=== PATIENT | female | born 1955 | race Caucasian/White ===

== ENCOUNTER 2020-05-29 17:48 | Outpatient (REF) | payer BC, SELFPAY | END 2020-05-29 17:49 | disposition home or self-care (01) | LOC: HO.LAB 17:48 | PROVIDERS: PCP Internal Medicine; Visit Provider Internal Medicine | DX: Z20.828 Contact with and (suspected) exposure to other viral communicable diseases (principal) | CPT/HCPCS: C9803; U0003 ==

== ENCOUNTER 2020-09-10 16:42 | Outpatient (REF) | payer BC, SELFPAY ==
[2020-09-10 20:12] LABS: Free T4 (Free Thyroxine) 0.91 ng/dL (0.71-1.85); Thyroid Stimulating Hormone 2.25 uIU/mL (0.32-4.0)
== END 2020-09-10 16:43 | disposition home or self-care (01) ==
LOC: HO.LAB 16:42
PROVIDERS: PCP Internal Medicine; Visit Provider Internal Medicine
DX: E03.9 Hypothyroidism, unspecified (principal)
CPT/HCPCS: 36415; 84439; 84443

== ENCOUNTER 2020-12-13 16:15 | Outpatient (REF) | payer OTHER, BC, SELFPAY ==
[2020-12-13 18:26] LABS: Albumin Level 4.2 g/dL (3.5-5.0)
[2020-12-13 18:55] LABS: Ferritin 143 ng/mL (10-250)
== END 2020-12-13 16:16 | disposition home or self-care (01) ==
LOC: HO.LAB 16:15
PROVIDERS: PCP Internal Medicine; Visit Provider Dermatology
DX: L65.9 Nonscarring hair loss, unspecified (principal); L71.8 Other rosacea
CPT/HCPCS: 36415; 82040; 82728

== ENCOUNTER 2021-06-17 09:59 | Outpatient (REF) | payer OTHER, SELFPAY ==
[2021-06-17 11:23] LABS: MANUAL DIFF FLAG NO
[2021-06-17 11:32] LABS: Basophils Absolute Auto 0.1 X10*3/uL (0.0-0.2); Basophils Percent Auto 0.9 % (0-2); Eosinophils Absolute Auto 0.2 X10*3/uL (0.0-0.4); Hematocrit 46.3 % (37.0-47.0); Hemoglobin 14.6 g/dl (12.0-16.0); Imm Gran Abs Auto 0.02 X10*3/uL (0.00-0.03); Imm Gran Pct Auto 0.3 % (0.0-0.4); Lymphocytes Absolute Auto 1.7 X10*3/uL (1.2-4.9); Lymphocytes Percent Auto 26.4 % (20-40); Mean Corpuscular HGB Conc 31.5 g/dl (31.0-35.0); Mean Corpuscular Hemoglobin 29.3 pg (27.0-33.0); Mean Corpuscular Volume 92.8 fL (80.0-98.0); Mean Platelet Volume 10.1 fL (9.4-12.3); Monocytes Absolute Auto 0.6 X10*3/uL (0.1-1.2); Monocytes Percent Auto 9.7 % (2-11); Neutrophils Absolute Auto 3.8 x10*3/uL (2.0-8.3); Neutrophils Percent Auto 59.7 % (45-73); Platelet Count 257 X10*3/uL (160-400); Red Blood Count 4.99 X10*6/uL (4.20-5.50); Red Cell Distribution Width 12.8 % (11.0-16.0); White Blood Count 6.4 X10*3/uL (4.8-10.8)
[2021-06-17 11:35] LABS: Estimated Average Glucose 148 mg/dL; Hemoglobin A1c % 6.8 %
[2021-06-17 11:48] LABS: Alanine Aminotransferase 44 U/L (0-31); Anion Gap 11 (12-20); Aspartate Amino Transferase 35 U/L (5-31); Blood Urea Nitrogen 21 mg/dL (9-16); Calcium 10.2 mg/dL (8.4-10.2); Carbon Dioxide 28 mmol/L (22-29); Chloride 109 mmol/L (96-108); Cholesterol 200 mg/dL; Estimated Glomerular Filt Rate 50; Glucose Fasting 122 mg/dL (60-99); HDL Cholesterol 42 mg/dL; LDL Cholesterol Calculated 125 mg/dl; Potassium 4.5 mmol/L (3.3-5.1); Sodium 143 mmol/L (135-145); Triglycerides 165 mg/dL
[2021-06-17 12:10] LABS: Free T4 (Free Thyroxine) 0.94 ng/dL (0.71-1.85); Thyroid Stimulating Hormone 2.69 uIU/mL (0.32-4.0); Vitamin D 25-OH Total 74.2 ng/mL (>30)
== END 2021-06-17 10:00 | disposition home or self-care (01) ==
LOC: HO.HMGCLDS 09:59
PROVIDERS: PCP Internal Medicine; Visit Provider Internal Medicine
DX: Z00.01 Encounter for general adult medical examination with abnormal findings (principal); E03.9 Hypothyroidism, unspecified; I10 Essential (primary) hypertension; M85.80 Other specified disorders of bone density and structure, unspecified site; R73.01 Impaired fasting glucose; Z78.0 Asymptomatic menopausal state
CPT/HCPCS: 36415; 80048; 80061; 82306; 83036; 84439; 84443; 84450; 84460; 85025

== ENCOUNTER 2021-06-27 10:30 | Outpatient (REF) | payer OTHER, SELFPAY ==
[2021-06-28 07:56] LABS: FIT1 NEGATIVE (NEGATIVE); FIT2 NEGATIVE (NEGATIVE)
[2021-06-28 07:57] LABS: FIT Int Ctl YES
== END 2021-06-27 10:31 | disposition home or self-care (01) ==
LOC: HO.HMGCLNP 10:30
PROVIDERS: Visit Provider Internal Medicine
DX: Z12.11 Encounter for screening for malignant neoplasm of colon (principal); Z12.12 Encounter for screening for malignant neoplasm of rectum
CPT/HCPCS: 82274

== ENCOUNTER 2021-09-24 13:25 | Outpatient (REF) | payer MEDICARE, MEDICAID, SELFPAY ==
[2021-09-24 14:28] LABS: Alanine Aminotransferase 30 U/L (0-31); Anion Gap 14 (12-20); Aspartate Amino Transferase 27 U/L (5-31); Blood Urea Nitrogen 38 mg/dL (9-16); Calcium 10.5 mg/dL (8.4-10.2); Carbon Dioxide 25 mmol/L (22-29); Chloride 107 mmol/L (96-108); Cholesterol 213 mg/dL; Estimated Glomerular Filt Rate 48; Glucose Fasting 84 mg/dL (60-99); HDL Cholesterol 42 mg/dL; LDL Cholesterol Calculated 151 mg/dl; Potassium 4.6 mmol/L (3.3-5.1); Sodium 141 mmol/L (135-145); Triglycerides 101 mg/dL
[2021-09-24 14:35] LABS: Estimated Average Glucose 126 mg/dL
[2021-09-24 14:51] LABS: Free T4 (Free Thyroxine) 1.09 ng/dL (0.71-1.85); Thyroid Stimulating Hormone 0.85 uIU/mL (0.32-4.0); Vitamin D 25-OH Total 87.2 ng/mL (>30)
== END 2021-09-24 13:26 | disposition home or self-care (01) ==
LOC: HO.HMGCLDS 13:25
PROVIDERS: PCP Internal Medicine; Visit Provider Internal Medicine
DX: Z01.83 Encounter for blood typing (principal); E03.9 Hypothyroidism, unspecified; I10 Essential (primary) hypertension; M85.80 Other specified disorders of bone density and structure, unspecified site; R73.01 Impaired fasting glucose; Z78.0 Asymptomatic menopausal state
CPT/HCPCS: 36415; 80048; 80061; 82306; 83036; 84439; 84443; 84450; 84460; 86900; 86901

== ENCOUNTER 2022-06-27 08:49 | Outpatient (REF) | payer OTHER, SELFPAY ==
[2022-06-27 11:59] LABS: Estimated Average Glucose 177 mg/dL; Hemoglobin A1c % 7.8 %
[2022-06-27 12:09] LABS: Alanine Aminotransferase 76 U/L (0-31); Anion Gap 15 (12-20); Aspartate Amino Transferase 55 U/L (5-31); Blood Urea Nitrogen 25 mg/dL (9-16); Calcium 10.1 mg/dL (8.4-10.2); Carbon Dioxide 25 mmol/L (22-29); Chloride 106 mmol/L (96-108); Cholesterol 216 mg/dL; Estimated Glomerular Filt Rate 50; Glucose Fasting 152 mg/dL (60-99); HDL Cholesterol 47 mg/dL; LDL Cholesterol Calculated 122 mg/dl; Potassium 4.8 mmol/L (3.3-5.1); Sodium 141 mmol/L (135-145); Triglycerides 239 mg/dL
[2022-06-27 12:28] LABS: Free T4 (Free Thyroxine) 0.94 ng/dL (0.71-1.85); Thyroid Stimulating Hormone 2.86 uIU/mL (0.32-4.0); Vitamin D 25-OH Total 51.4 ng/mL (>30)
[2022-06-30 13:13] LABS: Calcium, Ionized 5.2 mg/dL (4.8-5.6)
[2022-06-30 13:24] LABS: Calcium (PTHI) 10.1 mg/dL (8.6-10.4); PTHI 218 pg/mL (16-77)
== END 2022-06-27 08:50 | disposition home or self-care (01) ==
LOC: HO.HMGCLDS 08:49
PROVIDERS: PCP Internal Medicine; Visit Provider Internal Medicine
DX: Z00.01 Encounter for general adult medical examination with abnormal findings (principal); E03.9 Hypothyroidism, unspecified; E83.52 Hypercalcemia; F41.9 Anxiety disorder, unspecified; I10 Essential (primary) hypertension; M85.80 Other specified disorders of bone density and structure, unspecified site; R73.01 Impaired fasting glucose; Z78.0 Asymptomatic menopausal state
CPT/HCPCS: 36415; 80048; 80061; 82306; 82330; 83036; 83970; 84439; 84443; 84450; 84460

== ENCOUNTER → 2022-07-08 11:12 | Outpatient (BNVA) | payer OTHER, SELFPAY | PROVIDERS: PCP Internal Medicine; Visit Provider Internal Medicine Endocrinology, Diabetes & Metabolism | DX: E83.52 Hypercalcemia (principal) ==

== ENCOUNTER 2022-07-14 08:27 | Outpatient (REF) | payer OTHER, SELFPAY ==
[2022-07-14 10:31] LABS: Estimated Glomerular Filt Rate 43
[2022-07-14 10:38] LABS: Vitamin D 25-OH Total 72.3 ng/mL (>30)
[2022-07-14 11:10] LABS: Creatinine, mg/dL 68.37
[2022-07-14 12:23] LABS: Creatinine, 24Hr Urine 0.7 G/Day (1.0-2.0); Total Volume 24 Hour Urine 1075 mL
[2022-07-15 17:59] LABS: Calcium (PTHI) 10.4 mg/dL (8.6-10.4); PTHI 189 pg/mL (16-77)
[2022-07-16 17:18] LABS: Calcium, 24 Hr Urine 97 mg/24 h; Calcium/Creatinine Ratio 120 mg/g creat (30-275); Creatinine 24Hr Urine 0.81 g/24 h (0.50-2.15)
== END 2022-07-14 08:28 | disposition home or self-care (01) ==
LOC: HO.LAB 08:27
PROVIDERS: PCP Internal Medicine; Visit Provider Internal Medicine Endocrinology, Diabetes & Metabolism
DX: E83.52 Hypercalcemia (principal)
CPT/HCPCS: 36415; 82306; 82340; 82565; 82570; 83970

== ENCOUNTER 2022-08-07 09:36 | Outpatient (REF) | payer OTHER, SELFPAY ==
--- NOTE | ~2022-08-07 | US_ITS ---
EXAMINATION: US RETROPERITONEAL LIMITED (RENAL ONLY) CLINICAL INFORMATION: Hypercalcemia. COMPARISON: None. TECHNIQUE: Real-time imaging of the kidneys. FINDINGS: RIGHT KIDNEY: 8.9 x 4.1 x 4.9 cm (SAG x AP x TRV). The kidney is normal in size, contour, and echogenicity. Renal cortical thickness is normal. No focal parenchymal lesions or hydronephrosis. There is some nonspecific perinephric fat stranding around the right kidney. LEFT KIDNEY: 10.3 x 5.6 x 4.2 cm (SAG x AP x TRV). The kidney is normal in size, contour, and echogenicity. Renal cortical thickness is normal. No calculi or focal parenchymal lesions. No hydronephrosis. US/US renal BI IMPRESSION: No significant abnormality is seen. No renal nodule calculi or nephrocalcinosis visualized. There is some nonspecific perinephric fat stranding around the right kidney.
== END 2022-08-07 09:37 | disposition home or self-care (01) ==
LOC: HO.US 09:36
PROVIDERS: PCP Internal Medicine; Visit Provider Internal Medicine Endocrinology, Diabetes & Metabolism
DX: E83.52 Hypercalcemia (principal)
CPT/HCPCS: 76775

== ENCOUNTER 2022-10-13 08:57 | Outpatient (REF) | payer OTHER, SELFPAY ==
[2022-10-13 12:05] LABS: Alanine Aminotransferase 28 U/L (0-31); Anion Gap 14 (12-20); Aspartate Amino Transferase 27 U/L (5-31); Blood Urea Nitrogen 27 mg/dL (9-16); Calcium 10.4 mg/dL (8.4-10.2); Carbon Dioxide 25 mmol/L (22-29); Chloride 110 mmol/L (96-108); Cholesterol 152 mg/dL; Estimated Glomerular Filt Rate 47; Glucose Fasting 97 mg/dL (60-99); HDL Cholesterol 45 mg/dL; LDL Cholesterol Calculated 94 mg/dl; Potassium 4.4 mmol/L (3.3-5.1); Sodium 145 mmol/L (135-145); Triglycerides 67 mg/dL
[2022-10-13 12:47] LABS: Estimated Average Glucose 117 mg/dL; Hemoglobin A1c % 5.7 %
[2022-10-13 16:57] LABS: Creatinine Urine 42.02 mg/dL; Microalbum/Creatinine Ratio Ur 14.2 ug/mg cr
== END 2022-10-13 08:58 | disposition home or self-care (01) ==
LOC: HO.HMGCLDS 08:57
PROVIDERS: PCP Internal Medicine; Visit Provider Internal Medicine
DX: E11.65 Type 2 diabetes mellitus with hyperglycemia (principal)
CPT/HCPCS: 36415; 80048; 80061; 82043; 83036; 84450; 84460

== ENCOUNTER → 2022-11-05 09:29 | Outpatient (BNVA) | payer OTHER, SELFPAY | PROVIDERS: PCP Internal Medicine; Visit Provider Internal Medicine Endocrinology, Diabetes & Metabolism | DX: E03.9 Hypothyroidism, unspecified (principal); M85.80 Other specified disorders of bone density and structure, unspecified site; R73.01 Impaired fasting glucose; E83.52 Hypercalcemia; Z78.0 Asymptomatic menopausal state | CPT/HCPCS: 99212 ==

== ENCOUNTER 2023-01-08 08:11 | Outpatient (REF) | payer OTHER, SELFPAY ==
[2023-01-08 12:19] LABS: Estimated Average Glucose 108 mg/dL; Hemoglobin A1c % 5.4 %
[2023-01-08 12:22] LABS: Anion Gap 14 (12-20); Blood Urea Nitrogen 32 mg/dL (9-16); Calcium 10.9 mg/dL (8.4-10.2); Carbon Dioxide 23 mmol/L (22-29); Chloride 108 mmol/L (96-108); Estimated Glomerular Filt Rate 47; Glucose Fasting 93 mg/dL (60-99); Potassium 4.7 mmol/L (3.3-5.1); Sodium 140 mmol/L (135-145)
[2023-01-08 12:59] LABS: Free T4 (Free Thyroxine) 1.08 ng/dL (0.71-1.85); Thyroid Stimulating Hormone 0.19 uIU/mL (0.32-4.0)
[2023-01-12 13:22] LABS: Calcium (PTHI) 10.8 mg/dL (8.6-10.4); PTHI 145 pg/mL (16-77)
== END 2023-01-08 08:12 | disposition home or self-care (01) ==
LOC: HO.HMGCLDS 08:11
PROVIDERS: Internal Medicine Endocrinology, Diabetes & Metabolism; PCP Internal Medicine; Visit Provider Internal Medicine
DX: R73.01 Impaired fasting glucose (principal); M85.80 Other specified disorders of bone density and structure, unspecified site; E03.9 Hypothyroidism, unspecified; E83.52 Hypercalcemia; Z78.0 Asymptomatic menopausal state
CPT/HCPCS: 36415; 80048; 82306; 83036; 83970; 84439; 84443

== ENCOUNTER 2023-01-15 13:30 | Outpatient (AMB) | payer OTHER, SELFPAY ==
--- NOTE | 2023-01-15 13:37 | MHC.PC.OV ---
Vital Signs 01/15/23 13:40 Height 5 ft 3 in Weight 135 lb BMI 23.9 BP 130/64 Blood Pressure Location Lt brachial Position Sitting Pulse 66 Pulse Source Pulse Oximeter Pulse Oximetry (%) 95 Oxygen Delivery Method Room Air Intake Visit Reasons: 6 month follow up Intake Note: Pt is here today for her 6 mo. f/u Allergies cat Allergy (Unknown, Uncoded 01/16/23 00:45) swelling of lips crab meat Allergy (Unknown, Uncoded 01/16/23 00:45) sweling of lips Medication List - Last Reconciled 01/16/23 by Tawny Dunn MD cholecalciferol (vitamin D3) 125 mcg PO DAILY cyclosporine 0.05% (Restasis MultiDose) 1 drp ophthalmic (eye) Q12H doxycycline hyclate 50 mg PO DAILY epinephrine (EpiPen 2-Shiva) 0.3 mg (0.3 mL) IM Q15M PRN levothyroxine 75 mcg PO QAM Tobacco use date assessed: 01/15/23 Fall risk assessment: No Falls in past year Last assessed Fall Risk: 01/15/23 Dental Screening Dental Screen Date: 01/15/23 Did you have a dental visit in the last 12 months?: Yes Did you have a dental problem in the last 6 months where you did not have access to dental care?: No Was dental information given to patient?: Patient has dentist HPI 6 month follow up HPI Details 67-year-old lady with history of hypothyroidism diabetes mellitus, beginning osteopenia, and history of elevated serum calcium and intact parathyroid hormone, here today for follow-up. Has been feeling well, denies any joint pains, no weakness, no dizziness or chest pain or shortness of breath reported. She had recent fasting labs done which showed normal lipids,, electrolytes, but GFR is still low, has normal fasting glucose, and elevated serum calcium and intact parathyroid hormone. She was seen by Dr. Landeros several weeks ago and was told to observe her serum calcium levels at present time. Her TSH was mildly suppressed but her free T4 was within normal limits. Patient has been feeling well on current dose of levothyroxine. [facility] Medical History Acquired hypothyroidism Breast cancer screening by mammogram Closed fracture of neck of left femur Diabetes mellitus with hyperglycemia, without long-term current use of insulin Elevated blood pressure reading Elevated parathyroid hormone related peptide level Elevated serum creatinine History of herpes zoster History of posterior vitreous detachment Hypercalcemia Hypertriglyceridemia Keratitis sicca, bilateral Menopause Osteopenia Partial tear of right rotator cuff White coat syndrome with hypertension Surgical History Hx of repair of right rotator cuff Social History Household Members: None Housing: Apartment Alcohol intake: never Patient Tobacco Use Status: Never used Tobacco e-Cigarette/Vaping Use: Never Used Second Hand Smoke Exposure: No Current occupational status: employed Current occupation: [employer] Current occupational exposures/hazards: No Cognitive needs: No Hearing needs: Yes Vision needs: No Questionnaire Thrive Questionnaire Date Thrive assessed: 06/25/22 JENNIFER-7 AMB Questionnaire JENNIFER-7 Date JENNIFER - 7 assessed: 06/25/22 Source: Developed by Drs. Kehinde Arthur, Nanette Ernst, Remy Andrews and colleagues, with an educational kun from [employer] Review of Systems Const Denies body aches, Denies fatigue, Denies fever(s), Denies headache(s) and Denies weakness Eyes Denies change in vision ENT Denies dizziness, Denies headache(s), Reports hearing loss (Has bilateral hearing aids), Denies nasal congestion, Denies nasal discharge and Denies sore throat Card Denies chest pain, Denies lightheadedness, Denies palpitations and Denies dyspnea Resp Denies chest congestion, Denies cough, Denies dyspnea and Denies wheezing GI Denies abdominal pain, Denies change in bowel habits and Denies heartburn Reports no additional complaints Musc Reports no additional complaints Skin/Breast Denies lesions and Denies rash Neuro Denies dizziness, Denies headache(s), Denies Sensory deficit (Neuro) and Denies weakness Psych Reports no additional complaints Endo Denies fatigue, Denies polydipsia, Denies polyuria and Denies palpitations Santosh/Lymph Reports no additional complaints Aller/Immun Denies wheezing Physical exam (Primary Care) Vital Signs: Last Vital Signs Pulse 66 01/15/23 13:40 BP 130/64 01/15/23 13:40 Pulse Ox 95 01/15/23 13:40 Oxygen Delivery Method Room Air 01/15/23 13:40 BMI result Body Mass Index 23.9 Tobacco/Smoking Status: Tobacco use Status Tobacco use date assessed 01/15/23 01/15/23 13:42 Patient Tobacco Use Status Never used Tobacco 01/15/23 13:39 e-Cigarette/Vaping Use Never Used 01/15/23 13:39 Thrive Assessment: Date of Thrive Assessment Date Thrive assessed 06/25/22 01/15/23 13:39 Const Other: Alert oriented x3, no acute distress noted, ambulatory with normal gait Orientation/consciousness: patient oriented x3 HENMT Ears: external ears normal, TM's normal bilaterally, EAC's normal, hearing grossly impaired (Wears bilateral hearing aids) and other Mouth: Normal oral and palatal mucosa present and moist mucous membranes Eyes General: appearance normal, both eyes and all related structures Neck Other: Nonpalpable thyroid gland, nontender to palpation Neck: Yes full ROM, Yes no lymphadenopathy and Yes supple Resp Auscultation: clear to auscultation bilaterally Cardio Other: S1-S2 present regular rate and rhythm GI Other: normal bowel sounds, soft, nontender, no mass palpated Skin General skin exam: no rashes or lesions noted Neuro General: patient oriented x3, gait normal, tone normal, Normal light touch and pain sensation, no focal motor deficits and CN's II-XI intact bilaterally Sensory Exam: No Sensory deficit (Neuro) Extrem General: Yes full ROM, Yes no joint enlargement, Yes no pedal edema and Yes normal gait Psych Appearance: grossly normal and well kempt Mental Status: mental status grossly normal Speech and movement: Normal speech and movement present Affect: normal affect Results Reviewed Results Reviewed: SPEC : [id number] VICKI: 01/08/23 STATUS: COMP REQ : [id number] RECD: 01/08/[address]: Tawny Dunn MD COMP: 01/08/239 ENTERED: 01/08/[address]: ORDERED: Met Prof Fast, Vitamin D 25-OH, Free T4, TSH Test Result Flag Reference Site Sodium 140 135-145 mmol/L Potassium 4.7 3.3-5.1 mmol/L CL 108 96-108 mmol/L CO2 23 22-29 mmol/L Gap 14 12-20 BUN 32 H 9-16 mg/dL Creat 1.15 0.5-1.4 mg/dL EGFR 47 NOTE: For -[place] individuals, multiply the result by 1.210. Chronic Kidney Disease: Estimated GFR < 60 mL/min/1.73m2 Severe Kidney Disease: Estimated GFR < 15 mL/min/1.73m2 FBS 93 60-99 mg/dL CA 10.9 H 8.4-10.2 mg/dL Vit D 25-OH Tot 64.0 >30 ng/mL Health Based Reference Values* < 20 ng/mL Deficient 20-30 ng/mL Insufficient > 30 ng/mL Sufficient *Serafin SINGH. N Engl J Med. 2007;357:266-280 Care must be taken in interpreting Vitamin D results from different laboratories and methodologies. Published data demonstrated that results from patients undergoing hemodialysis may show a negative bias when tested with various automated 25-OH vitamin D assays when compared to LC-MS/MS. When testing samples from patients whose predominant form of Vitamin D is Vitamin D2, such as patients receiving Vitamin D2 supplementation, results that are subtherapeutic should be confirmed with another method such as LC-MS/MS. Free T4 1.08 0.71-1.85 ng/dL TSH 3rd Gen. 0.19 L 0.32-4.0 uIU/mL TSH 3rd Generation ([facility]) Assessment and Plan Assessment & Plan (1) Elevated serum creatinine: Code(s): R79.89 - Other specified abnormal findings of blood chemistry Plan: Nephrology consult obtained (2) Hypercalcemia: Code(s): E83.52 - Hypercalcemia Plan: Nephrology consult obtained (3) Elevated parathyroid hormone related peptide level: Code(s): R79.89 - Other specified abnormal findings of blood chemistry Plan: Patient currently asymptomatic, will refer to Nephrology (4) Acquired hypothyroidism: Code(s): E03.9 - Hypothyroidism, unspecified Plan: Thyroid levels are within normal limits, continue with current dose of levothyroxine 75 mcg daily in a.m. (5) Osteopenia: Code(s): M85.80 - Other specified disorders of bone density and structure, unspecified site Plan: Continue with regular weight-bearing exercises, in addition to taking adequate calcium in diet and taking vitamin-D 3 supplements. Orders: Orders US thyroid 01/15/23 E03.9 - Hypothyroidism, unspecified, E83.52 - Hypercalcemia, R79.89 - Other specified abnormal findings of blood chemistry Basic Metabolic Panel Fasting 05/15/23 E03.9 - Hypothyroidism, unspecified, E83.52 - Hypercalcemia, F41.9 - Anxiety disorder, unspecified, M85.80 - Other specified disorders of bone density and structure, unspecified site, R73.01 - Impaired fasting glucose, R79.89 - Other specified abnormal findings of blood chemistry Glucose Fasting 05/15/23 E03.9 - Hypothyroidism, unspecified, E83.52 - Hypercalcemia, F41.9 - Anxiety disorder, unspecified, M85.80 - Other specified disorders of bone density and structure, unspecified site, R73.01 - Impaired fasting glucose, R79.89 - Other specified abnormal findings of blood chemistry Lipid Panel 05/15/23 E03.9 - Hypothyroidism, unspecified, E83.52 - Hypercalcemia, F41.9 - Anxiety disorder, unspecified, M85.80 - Other specified disorders of bone density and structure, unspecified site, R73.01 - Impaired fasting glucose, R79.89 - Other specified abnormal findings of blood chemistry Free T4 (Free Thyroxine) 05/15/23 E03.9 - Hypothyroidism, unspecified, E83.52 - Hypercalcemia, F41.9 - Anxiety disorder, unspecified, M85.80 - Other specified disorders of bone density and structure, unspecified site, R73.01 - Impaired fasting glucose, R79.89 - Other specified abnormal findings of blood chemistry Thyroid Stimulating Hormone 05/15/23 E03.9 - Hypothyroidism, unspecified, E83.52 - Hypercalcemia, F41.9 - Anxiety disorder, unspecified, M85.80 - Other specified disorders of bone density and structure, unspecified site, R73.01 - Impaired fasting glucose, R79.89 - Other specified abnormal findings of blood chemistry Vitamin D 25-OH Total 05/15/23 E03.9 - Hypothyroidism, unspecified, E83.52 - Hypercalcemia, F41.9 - Anxiety disorder, unspecified, M85.80 - Other specified disorders of bone density and structure, unspecified site, R73.01 - Impaired fasting glucose, R79.89 - Other specified abnormal findings of blood chemistry Referrals Nephrology Referral E83.52 - Hypercalcemia, R79.89 - Other specified abnormal findings of blood chemistry Coding Level of Care Code Est Pt Level 4 (88548) Diagnoses Elevated serum creatinine R79.89 Hypercalcemia E83.52 Elevated parathyroid hormone related peptide level R79.89 Acquired hypothyroidism E03.9 Osteopenia M85.80
[2023-01-15 13:40] VITALS: BP 130/64; PULSE 66; O2SAT 95; BMI 23.9
== END 2023-01-15 14:39 | disposition home or self-care (01) ==
PROVIDERS: Visit Provider Internal Medicine
DX: R79.89 Other specified abnormal findings of blood chemistry (principal); E83.52 Hypercalcemia; E03.9 Hypothyroidism, unspecified; M85.80 Other specified disorders of bone density and structure, unspecified site
CPT/HCPCS: 99214

== ENCOUNTER 2023-01-22 08:58 | Outpatient (REF) | payer MEDICARE, SELFPAY ==
--- NOTE | ~2023-01-22 | US_ITS ---
EXAMINATION: US THYROID CLINICAL INFORMATION: Other specified abnormal findings of blood chemistry. Hypothyroidism. COMPARISON: None available. TECHNIQUE: Linear transducer grayscale and color Doppler examination with attention to the region of the thyroid. FINDINGS: SIZE: Measurements of the thyroid lobes and nodules are given in sagittal, anteroposterior and transverse dimensions respectively. Right Thyroid Lobe: 3.8 x 1.1 x 0.6 cm, volume 1.3 mL. Parenchyma: The gland echotexture is homogeneous. Thyroid vascularity is normal. Left Thyroid Lobe: 2.6 x 0.6 x 1.0 cm, volume 0.8 mL. Parenchyma: The gland echotexture is homogeneous. Thyroid vascularity is normal. Isthmus: 0.1 cm in maximum AP dimension. Estimated total number of nodules greater than or equal to 1 cm: 0. [employer] nodules are described as follows: 1. Location: Left upper pole. Size: 0.4 x 0.2 x 0.3 cm, volume 0.01 mL. Nodule characteristics: Composition: Mixed cystic and solid (1). Echogenicity: Hypoechoic (2). Shape: Not taller than wide (0). Margins: Smooth (0). Echogenic Foci: None (0). ACR TI-RADS total points: 3 ACR TI-RADS category: 3 2. Location: Left lower pole. Size: 0.5 x 0.4 x 0.5 cm, volume 0.06 mL. Nodule characteristics: Composition: Mixed cystic and solid (1). Echogenicity: Isoechoic (1). Shape: Not taller than wide (0). Margins: Smooth (0). Echogenic Foci: None (0). ACR TI-RADS total points: 2 ACR TI-RADS category: 2 3. Location: Right upper pole. Size: 0.3 x 0.2 x 0.3 cm coarse calcification is also seen. NODES: No lymphadenopathy is seen in the tissue surrounding the thyroid gland. US/US thyroid IMPRESSION: Subcentimeter thyroid nodules which do not warrant imaging follow-up. Otherwise unremarkable thyroid ultrasound. ACR TI-RADS RECOMMENDATION REFERENCE: Ultrasound-guided fine-needle aspiration, followup ultrasound, no further follow up. * TR1 (0 point) and TR2 (2 points): No FNA or follow up. * TR3 (3 points): FNA if more than or equal to 2.5 cm in maximum dimension, followup ultrasound in 1, 3 and 5 years if 1.5 to 2.4 cm in maximum dimension. * TR4 (4-6 points): FNA if more than or equal to 1.5 cm in maximum dimension, followup ultrasound in 1, 2, 3 and 5 years if 1 to 1.4 cm in maximum dimension. * TR5 (more than or equal to 7 points): FNA if more than or equal to 1 cm in maximum dimension, followup ultrasound every year for 5 years if 0.5 to 0.9 cm in maximum dimension. * TR3, TR4 or TR5 nodules that are below the size threshold for followup receive no follow up.
== END 2023-01-22 08:59 | disposition home or self-care (01) ==
LOC: HO.HMGCX 08:58
PROVIDERS: PCP Internal Medicine; Visit Provider Internal Medicine
DX: E03.9 Hypothyroidism, unspecified (principal); E83.52 Hypercalcemia; R79.89 Other specified abnormal findings of blood chemistry
CPT/HCPCS: 76536

== ENCOUNTER 2023-03-06 11:26 | Outpatient (REF) | payer MEDICARE, SELFPAY ==
--- NOTE | ~2023-03-06 | US_ITS ---
EXAMINATION: US RETROPERITONEAL LIMITED (RENAL ONLY) CLINICAL INFORMATION: Stage 3a chronic kidney disease. COMPARISON: Ultrasound retroperitoneal limited (renal only) 08/07/2022. TECHNIQUE: Real-time imaging of the kidneys. FINDINGS: RIGHT KIDNEY: 8.3 x 4.6 x 5.6 cm (SAG x AP x TRV). The kidney is normal in size, contour, and echogenicity. Renal cortical thickness is normal. No calculi or focal parenchymal lesions. No hydronephrosis. There is small extrarenal pelvis LEFT KIDNEY: 10.0 x 5.3 x 4.4 cm (SAG x AP x TRV). The kidney is normal in size, contour, and echogenicity. Renal cortical thickness is normal. No renal calculi or hydronephrosis. There is 0.5 x 0.4 x 0.4 cm angiomyolipoma in the cortex US/US renal BI IMPRESSION: Left-sided angiomyolipoma and right-sided extrarenal.
== END 2023-03-06 11:27 | disposition home or self-care (01) ==
LOC: HO.HMGCX 11:26
PROVIDERS: PCP Internal Medicine; Visit Provider Student in an Organized Health Care Education/Training Program
DX: N18.31 Chronic kidney disease, stage 3a (principal)
CPT/HCPCS: 76775

== ENCOUNTER 2023-03-16 08:34 | Outpatient (REF) | payer MEDICARE, SELFPAY ==
[2023-03-16 12:22] LABS: Free T4 (Free Thyroxine) 1.02 ng/dL (0.71-1.85); Thyroid Stimulating Hormone 0.39 uIU/mL (0.32-4.0)
== END 2023-03-16 08:35 | disposition home or self-care (01) ==
LOC: HO.HMGCLDS 08:34
PROVIDERS: PCP Internal Medicine; Visit Provider Internal Medicine
DX: E03.9 Hypothyroidism, unspecified (principal); R79.89 Other specified abnormal findings of blood chemistry; E83.52 Hypercalcemia; R73.01 Impaired fasting glucose; M85.80 Other specified disorders of bone density and structure, unspecified site; F41.9 Anxiety disorder, unspecified
CPT/HCPCS: 36415; 84439; 84443

== ENCOUNTER 2023-06-16 08:37 | Outpatient (REF) | payer MEDICARE, SELFPAY ==
[2023-06-16 12:31] LABS: Anion Gap 13 (12-20); Blood Urea Nitrogen 37 mg/dL (9-16); Calcium 9.5 mg/dL (8.4-10.2); Carbon Dioxide 26 mmol/L (22-29); Chloride 109 mmol/L (96-108); Cholesterol 142 mg/dL (<200); Estimated Glomerular Filt Rate 59; Glucose Fasting 79 mg/dL (60-99); HDL Cholesterol 59 mg/dL (>40); LDL Cholesterol Calculated 73 mg/dL (<100); Potassium 4.1 mmol/L (3.3-5.1); Sodium 144 mmol/L (135-145); Triglycerides 50 mg/dL (<150)
== END 2023-06-16 08:38 | disposition home or self-care (01) ==
LOC: HO.HMGCLDS 08:37
PROVIDERS: PCP Internal Medicine; Visit Provider Internal Medicine
DX: R79.89 Other specified abnormal findings of blood chemistry (principal); E83.52 Hypercalcemia; R73.01 Impaired fasting glucose; M85.80 Other specified disorders of bone density and structure, unspecified site; E03.9 Hypothyroidism, unspecified; F41.9 Anxiety disorder, unspecified
CPT/HCPCS: 36415; 80048; 80061; 82306

== ENCOUNTER 2023-08-04 09:22 | Outpatient (AMB) | payer MEDICARE, SELFPAY ==
[2023-08-04 09:28] VITALS: BP 132/66; PULSE 69; O2SAT 99; BMI 22.5
--- NOTE | 2023-08-04 09:28 | A.OFFPC_ITS ---
Vital Signs 08/04/23 09:28 Height 5 ft 3 in Weight 127 lb BMI 22.5 BP 132/66 Blood Pressure Location Lt brachial Position Sitting Pulse 69 Pulse Source Pulse Oximeter Pulse Oximetry (%) 99 Intake Visit Reasons: PE Intake Note: Pt is here today for PE: cologuard 07/17/22, mammogram 06/26/23, bone density scan 06/23/22 Allergies cat Allergy (Unknown, Uncoded 08/04/23 22:44) swelling of lips crab meat Allergy (Unknown, Uncoded 08/04/23 22:44) sweling of lips Medication List - Last Reconciled 08/04/23 by Tawny Dunn MD cinacalcet 30 mg PO DAILY cyclosporine 0.05% (Restasis MultiDose) 1 drp ophthalmic (eye) Q12H epinephrine 0.3 mg (0.3 mL) IM Q4H PRN levothyroxine 75 mcg PO QAM Tobacco use date assessed: 08/04/23 Fall risk assessment: No Falls in past year Last assessed Fall Risk: 08/04/23 Dental Screening Dental Screen Date: 08/04/23 Did you have a dental visit in the last 12 months?: Yes Did you have a dental problem in the last 6 months where you did not have access to dental care?: No Was dental information given to patient?: Patient has dentist HPI PE HPI Details Year old lady with diet-controlled diabetes mellitus, hyperlipidemia, hypothyroidism, rosacea, osteopenia, white coat hypertension hypertension, keratitis sicca, here today for her annual physical exam. She is currently up-to-date with her screening mammogram and bone density scan, and had a negative Cologuard testing done last year. She has been feeling well, has stopped eating a lot of simple carbohydrates, having mostly fish , vegetables, lean meat in her diet, goes to the gym and exercises regularly. Patient states that she has been feeling well, with no joint pains, more energy ever since she changed her diet and lost weight. She had recent fasting labs done which showed fasting glucose, lipids, vitamin-D level within normal limits. She is up-to-date with all her vaccines, and is currently being followed by by her mortgage banker in [place] on a regular basis. She sees her dynamite reclaimer at [place], who diagnosed her with CKD stage 3 and hyperparathyroidism, has recently started on Sensipar with decreasing parathyroid hormone and calcium levels noted. [facility] Medical History (Updated 08/04/23 @ 22:59 by Tawny Dunn MD) Controlled diabetes mellitus type II without complication CKD (chronic kidney disease) Hyperparathyroidism Hypertriglyceridemia Elevated blood pressure reading Partial tear of right rotator cuff Closed fracture of neck of left femur History of herpes zoster History of posterior vitreous detachment White coat syndrome with hypertension Osteopenia Keratitis sicca, bilateral Acquired hypothyroidism Surgical History Hx of repair of right rotator cuff Social History Household Members: None Housing: Apartment Alcohol intake: never Patient Tobacco Use Status: Never used Tobacco e-Cigarette/Vaping Use: Never Used Second Hand Smoke Exposure: No Current occupational status: employed Current occupation: [employer] Current occupational exposures/hazards: No Cognitive needs: No Hearing needs: Yes Vision needs: No Questionnaire PHQ-9 Over the last 2 weeks, how often have you been bothered by any of the following problems? 1. Little interest or pleasure in doing things: not at all 2. Feeling down, depressed, or hopeless: not at all 3. Trouble falling or staying asleep, or sleeping too much: not at all 4. Feeling tired or having little energy: not at all 5. Poor appetite or overeating: not at all 6. Feeling bad about yourself - or that you are a failure or have let yourself or your family down: not at all 7. Trouble concentrating on things, such as reading the newspaper or watching television: not at all 8. Moving or speaking so slowly that other people could have noticed. Or the opposite - being so fidgety or restless that you have been moving around a lot more than usual: not at all 9. Thoughts that you would be better off or of hurting yourself in some way : not at all Total score: 0 Depression Screening Interpretation: Negative Depression Screening Done: Yes 40179 - PHQ-9 Billing: Yes Source: Developed by Drs. Kehinde Arthur, Nanette Ernst, Remy Andrews and colleagues, with an educational kun from [employer]. Thrive Questionnaire Date Thrive assessed: 08/04/23 I am a: Patient What is your living situation today?: I have a steady place to live Within the past 12 months, did the food you bought not last and you didn't have the money to get more?: Never true Within the past 12 months, did you worry whether your food would run out before you got money to buy more?: Never true Do you have trouble paying for medicines?: No Do you have trouble getting transportation to medical appointments?: No Do you have trouble paying your heating and electricity bill?: No Do you have trouble taking care of your child, family member or friend?: No Do you have trouble with day-to-day activities such as bathing, preparing meals, shopping, managing finances, etc.?: No Are you currently unemployed and looking for a job?: No Are you interested in more education?: No THRIVE Score: 0 AUDIT C Alcohol Use Questionnaire (AUDIT-C) 1. How often do you have a drink containing alcohol?: Never 3. How often do you have six or more drinks on one occasion?: Never Total Score: 0 JENNIFER-7 AMB Questionnaire JENNIFER-7 Date JENNIFER - 7 assessed: 08/04/23 Feeling nervous, anxious, or on edge: 0 = Not at all Not being able to stop or control worryin = Not at all Worrying too much about different things: 0 = Not at all Trouble relaxin = Not at all Being so restless that it is hard to sit still: 0 = Not at all Becoming easily annoyed or irritable: 0 = Not at all Feeling afraid as if something awful might happen: 0 = Not at all Total JENNIFER-7 score (0-4 normal; 5-9 mild; 10-14 moderate; 15-21 severe): 0 Source: Developed by Drs. Kehinde Arthur, Nanette Ernst, Remy Andrews and colleagues, with an educational kun from [employer]. JENNIFER-7 Assessment Billing JENNIFER-7 Assessment Tool: JENNIFER-7 Assessment 22303 Review of Systems Const Denies body aches, Denies fatigue, Denies fever(s), Denies headache(s) and Denies weakness Eyes Denies change in vision ENT Denies dizziness, Denies headache(s), Reports hearing loss (Has bilateral hearing aids), Denies nasal congestion, Denies nasal discharge and Denies sore throat Card Denies chest pain, Denies lightheadedness, Denies palpitations and Denies dyspnea Resp Denies chest congestion, Denies cough, Denies dyspnea and Denies wheezing GI Denies abdominal pain, Denies change in bowel habits and Denies heartburn Reports no additional complaints Musc Reports no additional complaints Skin/Breast Denies lesions and Denies rash Neuro Denies dizziness, Denies headache(s), Denies Sensory deficit (Neuro) and Denies weakness Psych Reports no additional complaints Endo Denies fatigue, Denies polydipsia, Denies polyuria and Denies palpitations Santosh/Lymph Reports no additional complaints Aller/Immun Denies wheezing Physical exam (Primary Care) Vital Signs: Last Vital Signs Pulse 69 08/04/23 09:28 BP 132/66 08/04/23 09:28 Pulse Ox 99 08/04/23 09:28 BMI result Body Mass Index 22.5 Tobacco/Smoking Status: Tobacco use Status Tobacco use date assessed 08/04/23 08/04/23 09:31 Patient Tobacco Use Status Never used Tobacco 08/04/23 09:31 e-Cigarette/Vaping Use Never Used 08/04/23 09:31 PHQ-9: PHQ-9 Score PHQ-9: Total score 0 08/04/23 10:03 Depression Screening Interpretation: Negative Thrive Assessment: Date of Thrive Assessment Date Thrive assessed 08/04/23 08/04/23 09:31 Const Other: Alert oriented x3, no acute distress noted, ambulatory with normal gait Orientation/consciousness: patient oriented x3 HENMT Ears: external ears normal, TM's normal bilaterally, EAC's normal, hearing grossly impaired (Wears bilateral hearing aids) and other Mouth: Normal oral and palatal mucosa present and moist mucous membranes Eyes General: appearance normal, both eyes and all related structures Neck Other: Nonpalpable thyroid gland, nontender to palpation Neck: Yes full ROM, Yes no lymphadenopathy and Yes supple Chest Breast/axilla inspection: normal inspection of the breasts Breast/axilla palpation: normal palpation of the breasts Resp Auscultation: clear to auscultation bilaterally Cardio Other: S1-S2 present regular rate and rhythm GI Other: normal bowel sounds, soft, nontender, no mass palpated General: Yes no CVA tenderness and Yes other (Patient declined exam) Back/Spine/Pelvis Back: no CVA tenderness and No back tenderness Skin General skin exam: no rashes or lesions noted Neuro General: patient oriented x3, gait normal, tone normal, Normal light touch and pain sensation, no focal motor deficits and CN's II-XI intact bilaterally Sensory Exam: No Sensory deficit (Neuro) Extrem General: Yes full ROM, Yes no joint enlargement, Yes no pedal edema and Yes normal gait Psych Appearance: grossly normal and well kempt Mental Status: mental status grossly normal Speech and movement: Normal speech and movement present Affect: normal affect Results Reviewed Results Reviewed: PEC : [id number] VICKI: 06/16/23 STATUS: COMP REQ : [id number] RECD: 06/16/[address]: Tawny Dunn MD COMP: 06/16/23 ENTERED: 06/16/[address]: ORDERED: Met Prof Fast, Lipid Panel, Vitamin D 25-OH Test Result Flag Reference Sodium 144 135-145 mmol/L Potassium 4.1 3.3-5.1 mmol/L CL 109 H 96-108 mmol/L CO2 26 22-29 mmol/L Gap 13 12-20 BUN 37 H 9-16 mg/dL Creat 0.95 0.5-1.4 mg/dL EGFR 59 NOTE: For -[place] individuals, multiply the result by 1.210. Chronic Kidney Disease: Estimated GFR < 60 mL/min/1.73m2 Severe Kidney Disease: Estimated GFR < 15 mL/min/1.73m2 FBS 79 60-99 mg/dL CA 9.5 # 8.4-10.2 mg/dL Triglyceride 50 <150 mg/dL Desirable Triglyceride: less than 150 mg/dL Borderline High Triglyceride 150-199 mg/dL High Triglyceride: 200-499 mg/dL Very High Triglyceride: greater than or equal to 5OO mg/dL Cholesterol 142 <200 mg/dL Desirable Cholesterol: less than 200 mg/dL Borderline High Cholesterol: 200-239 mg/dL High Cholesterol: greater than 239 mg/dL LDL Calculated 73 <100 mg/dL Desirable LDL: less than 100 mg/dL Near Optimal/Above Optimal LDL: 110-129 mg/dL Borderline High LDL: 130-159 mg/dL High LDL: 160-189 mg/dL Very High LDL: greater than or equal to 190 mg/dL HDL 59 >40 mg/dL Desirable HDL: greater than 40 mg/dL Note: This HDL assay may give artificially low results in patients with liver disease. Vit D 25-OH Tot 56.0 >30 ng/mL Health Based Reference Values* < 20 ng/mL Deficient 20-30 ng/mL Insufficient > 30 ng/mL Sufficient Assessment and Plan Assessment & Plan (1) Annual visit for general adult medical examination with abnormal findings: Code(s): Z00.01 - Encounter for general adult medical examination with abnormal findings Plan: Discussed recent fasting lab results with patient were within normal limits. Continue with regular dental visit every 6 months and regular eye exams, currently being seen in [place]. Take adequate calcium in diet and vitamin-D 3 at 2000 IU per cap once a day, in addition to weight-bearing exercises to help maintain good muscle tone and weight control. Continue doing self-breast exam, and get yearly mammogram, bone density scans up-to-date, due again for a recheck in 2024. She is up-to-date with all her vaccinations, Cologuard testing was done a year ago with negative findings, due again in 2025 (2) Osteopenia: Code(s): M85.80 - Other specified disorders of bone density and structure, unspecified site Qualifiers: Osteopenia location: femoral neck Laterality: left Qualified Code(s): M85.852 - Other specified disorders of bone density and structure, left thigh Plan: Continue regular weight-bearing exercise, continue taking calcium from dietary sources and recent vitamin-D levels within normal limits. Will repeat another bone density scan in 2024 (3) Acquired hypothyroidism: Code(s): E03.9 - Hypothyroidism, unspecified Plan: Thyroid levels are within normal limits, continue with current dose of levothyroxine 75 mcg daily and daily in a.m. an hour before breakfast (4) CKD (chronic kidney disease): Code(s): N18.9 - Chronic kidney disease, unspecified Qualifiers: Chronic kidney disease stage: stage 3 (moderate) Chronic kidney disease stage 3 subtype: stage 3a (GFR 45-59) Qualified Code(s): N18.31 - Chronic kidney disease, stage 3a Plan: Followed by dynamite reclaimer in and filled, advised to stay well-hydrated, drink more water (5) Hyperparathyroidism: Code(s): E21.3 - Hyperparathyroidism, unspecified Plan: Recently started on Sensipar with recent serum calcium and parathyroid hormone now within normal limits (6) Controlled diabetes mellitus type II without complication: Code(s): E11.9 - Type 2 diabetes mellitus without complications Plan: Control through diet and exercise, up-to-date with her eye exams and vaccines (7) Keratitis sicca, bilateral: Comment: Followed at [facility] Code(s): M35.01 - Sjogren syndrome with keratoconjunctivitis Plan: Currently on cyclosporine, followed at [facility]. Orders: Orders Hemoglobin A1c 02/10/24 E11.9 - Type 2 diabetes mellitus without complications Free T4 (Free Thyroxine) 02/10/24 E03.9 - Hypothyroidism, unspecified, E11.9 - Type 2 diabetes mellitus without complications, E21.3 - Hyperparathyroidism, unspecified, M85.80 - Other specified disorders of bone density and structure, unspecified site, N18.9 - Chronic kidney disease, unspecified, Z78.0 - Asymptomatic menopausal state Thyroid Stimulating Hormone 02/10/24 E03.9 - Hypothyroidism, unspecified, E11.9 - Type 2 diabetes mellitus without complications, E21.3 - Hyperparathyroidism, unspecified, M85.80 - Other specified disorders of bone density and structure, unspecified site, N18.9 - Chronic kidney disease, unspecified, Z78.0 - Asymptomatic menopausal state Coding Level of Care Code Est Pt Prev Care >65y(24982) Diagnoses Annual visit for general adult medical examination with abnormal findings Z00.01 Osteopenia of neck of left femur M85.852 Osteopenia location: femoral neck Laterality: left Acquired hypothyroidism E03.9 Stage 3a chronic kidney disease N18.31 Chronic kidney disease stage: stage 3 (moderate) Chronic kidney disease stage 3 subtype: stage 3a (GFR 45-59) Hyperparathyroidism E21.3 Controlled diabetes mellitus type II without complication E11.9 Keratitis sicca, bilateral M35.01 Additional Codes JENNIFER-7 Assessment Billing - JENNIFER-7 Assessment Tool: JENNIFER-7 Assessment 11388 ([id number])
== END 2023-08-04 10:20 | disposition home or self-care (01) ==
PROVIDERS: PCP Internal Medicine; Visit Provider Internal Medicine
DX: Z00.00 Encounter for general adult medical examination without abnormal findings (principal); E11.22 Type 2 diabetes mellitus with diabetic chronic kidney disease; N18.31 Chronic kidney disease, stage 3a; E21.3 Hyperparathyroidism, unspecified; M35.01 Sjogren syndrome with keratoconjunctivitis; M85.852 Other specified disorders of bone density and structure, left thigh; E03.9 Hypothyroidism, unspecified
CPT/HCPCS: 99397

== ENCOUNTER 2024-02-18 07:38 | Outpatient (REF) | payer MEDICARE, SELFPAY ==
[2024-02-18 10:41] LABS: Estimated Average Glucose 108 mg/dL; Hemoglobin A1c % 5.4 % (<6.0)
[2024-02-18 10:52] LABS: Glucose Fasting 94 mg/dL (60-99)
[2024-02-18 11:00] LABS: Thyroid Stimulating Hormone 0.21 uIU/mL (0.32-4.0)
== END 2024-02-18 07:39 | disposition home or self-care (01) ==
LOC: HO.HMGCLDS 07:38
PROVIDERS: PCP Internal Medicine; Visit Provider Internal Medicine
DX: R79.89 Other specified abnormal findings of blood chemistry (principal); E83.52 Hypercalcemia; R73.01 Impaired fasting glucose; M85.80 Other specified disorders of bone density and structure, unspecified site; E03.9 Hypothyroidism, unspecified; F41.9 Anxiety disorder, unspecified; Z78.0 Asymptomatic menopausal state; E21.3 Hyperparathyroidism, unspecified; N18.9 Chronic kidney disease, unspecified; E11.9 Type 2 diabetes mellitus without complications
CPT/HCPCS: 36415; 82947; 83036; 84439; 84443

== ENCOUNTER 2024-03-07 10:37 | Outpatient (AMB) | payer MEDICARE, SELFPAY ==
--- NOTE | 2024-03-07 11:06 | A.OFFPC_ITS ---
Vital Signs 03/07/24 11:07 Height 5 ft 3 in Weight 142 lb BMI 25.2 BP 132/70 Blood Pressure Location Lt brachial Position Sitting Pulse 68 Pulse Source Pulse Oximeter Pulse Oximetry (%) 95 Oxygen Delivery Method Room Air Intake Visit Reasons: 6 month f/u - see comments Intake Note: Pt is here today for her 6mo. labs Allergies cat Allergy (Unknown, Uncoded 03/07/24 11:25) swelling of lips crab meat Allergy (Unknown, Uncoded 03/07/24 11:25) sweling of lips Medication List - Last Reconciled 03/07/24 by Tawny Dunn MD cyclosporine 0.05% (Restasis MultiDose) 1 drp ophthalmic (eye) Q12H doxycycline hyclate 50 mg PO DAILY epinephrine 0.3 mg (0.3 mL) IM Q4H PRN levothyroxine 75 mcg PO QAM Tobacco use date assessed: 03/07/24 Fall risk assessment: No Falls in past year Last assessed Fall Risk: 03/07/24 Dental Screening Dental Screen Date: 03/07/24 Did you have a dental visit in the last 12 months?: Yes Did you have a dental problem in the last 6 months where you did not have access to dental care?: No Was dental information given to patient?: Patient has dentist HPI 6 month f/u - see comments HPI Details 68 year old lady with diet-controlled di abetes mellitus, hyperlipidemia, hypothyroidism, rosacea, osteopenia, white coat hypertension hypertension, keratitis sicca, here today for follow-up on her thyroid and diabetes mellitus. [facility] Medical History (Updated 03/07/24 @ 11:43 by Tawny Dunn MD) Osteopenia of lumbar spine Controlled diabetes mellitus type II without complication CKD (chronic kidney disease) Hyperparathyroidism Hypertriglyceridemia Elevated blood pressure reading Partial tear of right rotator cuff Closed fracture of neck of left femur History of herpes zoster History of posterior vitreous detachment White coat syndrome with hypertension Osteopenia Keratitis sicca, bilateral Acquired hypothyroidism Surgical History Hx of repair of right rotator cuff Social History Household Members: None Housing: Apartment Alcohol intake: never Patient Tobacco Use Status: Never used Tobacco e-Cigarette/Vaping Use: Never Used Second Hand Smoke Exposure: No service: No Current occupational status: retired Current occupation: [employer] Current occupational exposures/hazards: No Cognitive needs: No Hearing needs: Yes Vision needs: No Questionnaire PHQ-9 Over the last 2 weeks, how often have you been bothered by any of the following problems? 1. Little interest or pleasure in doing things: not at all 2. Feeling down, depressed, or hopeless: not at all 3. Trouble falling or staying asleep, or sleeping too much: not at all 4. Feeling tired or having little energy: several days 5. Poor appetite or overeating: not at all 6. Feeling bad about yourself - or that you are a failure or have let yourself or your family down: not at all 7. Trouble concentrating on things, such as reading the newspaper or watching television: not at all 8. Moving or speaking so slowly that other people could have noticed. Or the opposite - being so fidgety or restless that you have been moving around a lot more than usual: not at all 9. Thoughts that you would be better off or of hurting yourself in some way: not at all Total score: 1 Depression Screening Interpretation: Negative Depression Screening Done: Yes 76990 - PHQ-9 Billing: Yes Source: Developed by Drs. Kehinde Arthur, Nanette Ernst, Remy Andrews and colleagues, with an educational kun from [employer]. Thrive Questionnaire Date Thrive assessed: 03/07/24 I am a: Patient What is your living situation today?: I have a steady place to live Within the past 12 months, did the food you bought not last and you didn't have the money to get more?: Never true Within the past 12 months, did you worry whether your food would run out before you got money to buy more?: Never true Do you have trouble paying for medicines?: No Do you have trouble getting transportation to medical appointments?: No Do you have trouble paying your heating and electricity bill?: No Do you have trouble taking care of your child, family member or friend?: No Do you have trouble with day-to-day activities such as bathing, preparing meals, shopping, managing finances, etc.?: No Are you interested in more education?: No Please select the resources that you would like help with: None Currently or been in a relationship where the following occur: I choose not to answer THRIVE Score: 0 AUDIT C Alcohol Use Questionnaire (AUDIT-C) 1. How often do you have a drink containing alcohol?: Never 3. How often do you have six or more drinks on one occasion?: Never Total Score: 0 JENNIFER-7 AMB Questionnaire JENNIFER-7 Date JENNIFER - 7 assessed: 03/07/24 Feeling nervous, anxious, or on edge: 0 = Not at all Not being able to stop or control worryin = Not at all Worrying too much about different things: 0 = Not at all Trouble relaxin = Not at all Being so restless that it is hard to sit still: 0 = Not at all Becoming easily annoyed or irritable: 0 = Not at all Feeling afraid as if something awful might happen: 0 = Not at all Total JENNIFER-7 score (0-4 normal; 5-9 mild; 10-14 moderate; 15-21 severe): 0 Source: Developed by Drs. Kehinde Arthur, Nanette Ernst, Remy Andrews and colleagues, with an educational kun from [employer]. JENNIFER-7 Assessment Billing JENNIFER-7 Assessment Tool: JENNIFER-7 Assessment 90906 Review of Systems Const Denies body aches, Denies fatigue, Denies fever(s), Denies headache(s) and Denies weakness Eyes Denies change in vision ENT Denies dizziness, Denies headache(s), Reports hearing loss (Has bilateral hearing aids), Denies nasal congestion, Denies nasal discharge and Denies sore throat Card Denies chest pain, Denies lightheadedness, Denies palpitations and Denies dyspnea Resp Denies chest congestion, Denies cough, Denies dyspnea and Denies wheezing GI Denies abdominal pain, Denies change in bowel habits and Denies heartburn Reports no additional complaints Musc Reports no additional complaints Skin/Breast Denies lesions and Denies rash Neuro Denies dizziness, Denies headache(s), Denies Sensory deficit (Neuro) and Denies weakness Psych Reports no additional complaints Endo Denies fatigue, Denies polydipsia, Denies polyuria and Denies palpitations Santosh/Lymph Reports no additional complaints Aller/Immun Denies wheezing Physical exam (Primary Care) Vital Signs: Last Vital Signs Pulse 68 03/07/24 11:07 BP 132/70 03/07/24 11:07 Pulse Ox 95 03/07/24 11:07 Oxygen Delivery Method Room Air 03/07/24 11:07 BMI result Body Mass Index 25.2 Tobacco/Smoking Status: Tobacco use Status Tobacco use date assessed 03/07/24 03/07/24 11:21 Patient Tobacco Use Status Never used Tobacco 03/07/24 11:07 e-Cigarette/Vaping Use Never Used 03/07/24 11:07 PHQ-9: PHQ-9 Score PHQ-9: Total score 1 03/07/24 11:28 Depression Screening Interpretation: Negative Thrive Assessment: Date of Thrive Assessment Date Thrive assessed 03/07/24 03/07/24 11:21 Currently or been in a relationship where the following occur: I choose not to answer Const Other: Alert oriented x3, no acute distress noted, ambulatory with normal gait Orientation/consciousness: patient oriented x3 HENMT Ears: external ears normal, TM's normal bilaterally, EAC's normal, hearing grossly impaired (Wears bilateral hearing aids) and other Mouth: Normal oral and palatal mucosa present and moist mucous membranes Eyes General: appearance normal, both eyes and all related structures Neck Other: Nonpalpable thyroid gland, nontender to palpation Neck: Yes full ROM, Yes no lymphadenopathy and Yes supple Resp Auscultation: clear to auscultation bilaterally Cardio Other: S1-S2 present regular rate and rhythm GI Other: normal bowel sounds, soft, nontender, no mass palpated Skin General skin exam: no rashes or lesions noted Neuro General: patient oriented x3, gait normal, tone normal, Normal light touch and pain sensation, no focal motor deficits and CN's II-XI intact bilaterally Sensory Exam: No Sensory deficit (Neuro) Extrem General: Yes full ROM, Yes no joint enlargement, Yes no pedal edema and Yes normal gait Psych Appearance: grossly normal and well kempt Mental Status: mental status grossly normal Speech and movement: Normal speech and movement present Affect: normal affect Results Reviewed Results Reviewed: Laboratory Tests 02/18/24 07:54 Fasting Glucose 94 Estimat Average Glucose 108 Hemoglobin A1c % 5.4 TSH 0.21 L Free T4 1.00 Assessment and Plan Assessment & Plan (1) Acquired hypothyroidism: Code(s): E03.9 - Hypothyroidism, unspecified Plan: Thyroid levels are within normal limits, continued on levothyroxine 75 mcg taken daily in a.m. an hour before breakfast (2) Controlled diabetes mellitus type II without complication: Code(s): E11.9 - Type 2 diabetes mellitus without complications Plan: Recent lab results reviewed with patient, with sugar and hemoglobin A1c stable and at goal controlled with diet and exercise.. continue with adherence with diabetic diet and regular exercise with patient. Counseled regarding importance of yearly diabetes retinopathy screening. Patient advised to inspect feet daily, for any signs of injury, callus or infection. . Blood pressure goal is less than 130/80, goal LDL is less than 100 and goal hemoglobin A1c is less than 7% (3) Osteopenia of lumbar spine: Code(s): M85.88 - Other specified disorders of bone density and structure, other site Plan: Ordered a repeat bone density scan, continue with regular weight-bearing exercise, take adequate calcium from dietary sources and vitamin-D 3 supplements at least 2000 units daily (4) Breast cancer screening by mammogram: Code(s): Z12.31 - Encounter for screening mammogram for malignant neoplasm of breast Plan: Screening mammogram ordered Orders: Orders XR DEXA axial skeleton 03/07/24 E21.3 - Hyperparathyroidism, unspecified, M85.88 - Other specified disorders of bone density and structure, other site, Z12.31 - Encounter for screening mammogram for malignant neoplasm of breast, Z78.0 - Asymptomatic menopausal state MM tomosynthesis screening BI 03/07/24 E21.3 - Hyperparathyroidism, unspecified, M85.88 - Other specified disorders of bone density and structure, other site, Z12.31 - Encounter for screening mammogram for malignant neoplasm of breast, Z78.0 - Asymptomatic menopausal state Coding Level of Care Code Est Pt Level 4 (84284) Complex EM visit Add On G2211 Diagnoses Acquired hypothyroidism E03.9 Controlled diabetes mellitus type II without complication E11.9 Osteopenia of lumbar spine M85.88 Breast cancer screening by mammogram Z12. Additional Codes JENNIFER-7 Assessment Billing - JENNIFER-7 Assessment Tool: JENNIFER-7 Assessment 97069 ([id number])
[2024-03-07 11:07] VITALS: BP 132/70; PULSE 68; O2SAT 95; BMI 25.2
== END 2024-03-07 12:02 | disposition home or self-care (01) ==
PROVIDERS: PCP Internal Medicine; Visit Provider Internal Medicine
DX: E03.9 Hypothyroidism, unspecified (principal); E11.9 Type 2 diabetes mellitus without complications; M85.88 Other specified disorders of bone density and structure, other site; Z12.31 Encounter for screening mammogram for malignant neoplasm of breast

== ENCOUNTER → 2024-03-07 10:37 | Outpatient (BNVA) | payer MEDICARE, SELFPAY | PROVIDERS: PCP Internal Medicine; Visit Provider Internal Medicine | DX: E03.9 Hypothyroidism, unspecified (principal); E11.9 Type 2 diabetes mellitus without complications; M85.88 Other specified disorders of bone density and structure, other site | CPT/HCPCS: 96127; 99212 ==

== ENCOUNTER 2024-05-31 08:16 | Outpatient (REF) | payer MEDICARE, SELFPAY ==
[2024-05-31 10:46] LABS: Free T4 (Free Thyroxine) 1.18 ng/dL (0.71-1.85); Thyroid Stimulating Hormone 0.54 uIU/mL (0.32-4.0)
== END 2024-05-31 08:17 | disposition home or self-care (01) ==
LOC: HO.HMGCLDS 08:16
PROVIDERS: PCP Internal Medicine; Visit Provider Internal Medicine
DX: E03.9 Hypothyroidism, unspecified (principal)
CPT/HCPCS: 36415; 84439; 84443

== ENCOUNTER 2024-12-22 07:23 | Outpatient (REF) | payer MEDICARE, SELFPAY ==
[2024-12-22 10:50] LABS: Hemoglobin A1C 149.3015 umol/L; Total Hemoglobin (HGBA1C) 3589.6309 umol/L
[2024-12-22 10:56] LABS: Anion Gap 11 (12-20); Blood Urea Nitrogen 23 mg/dL (9-16); Calcium 8.6 mg/dL (8.4-10.2); Carbon Dioxide 26 mmol/L (22-29); Chloride 110 mmol/L (96-108); Cholesterol 238 mg/dL (<200); Estimated Glomerular Filt Rate 43; HDL Cholesterol 49 mg/dL (>40); Potassium 3.8 mmol/L (3.3-5.1); Sodium 143 mmol/L (135-145); Triglycerides 175 mg/dL (<150)
[2024-12-22 11:29] LABS: Free T4 (Free Thyroxine) 0.92 ng/dL (0.71-1.85); Thyroid Stimulating Hormone 1.87 uIU/mL (0.32-4.0)
[2024-12-22 11:41] LABS: Microalbum/Creatinine Ratio Ur 17.3 ug/mg cr (<30)
== END 2024-12-22 07:24 | disposition home or self-care (01) ==
LOC: HO.HMGCLDS 07:23
PROVIDERS: PCP Internal Medicine; Visit Provider Internal Medicine
DX: M85.852 Other specified disorders of bone density and structure, left thigh (principal); E03.9 Hypothyroidism, unspecified; E11.9 Type 2 diabetes mellitus without complications; I10 Essential (primary) hypertension; Z78.0 Asymptomatic menopausal state; N18.31 Chronic kidney disease, stage 3a; M85.88 Other specified disorders of bone density and structure, other site
CPT/HCPCS: 36415; 80048; 80061; 82043; 82306; 82570; 83036; 84439; 84443

== ENCOUNTER 2024-12-27 12:39 | Outpatient (REF) | payer MEDICARE, SELFPAY ==
[2024-12-27 16:55] LABS: Parathyroid Hormone Intact 194.2 pg/mL (8.7-77.1)
== END 2024-12-27 12:40 | disposition home or self-care (01) ==
LOC: HO.HMGCLDS 12:39
PROVIDERS: PCP Internal Medicine; Visit Provider Internal Medicine
DX: Z00.01 Encounter for general adult medical examination with abnormal findings (principal); E03.9 Hypothyroidism, unspecified; N18.31 Chronic kidney disease, stage 3a; E11.22 Type 2 diabetes mellitus with diabetic chronic kidney disease; M81.0 Age-related osteoporosis without current pathological fracture; M35.01 Sjogren syndrome with keratoconjunctivitis; E78.2 Mixed hyperlipidemia; Z79.899 Other long term (current) drug therapy; Z86.39 Personal history of other endocrine, nutritional and metabolic disease; Z71.89 Other specified counseling; Z13.30 Encounter for screening examination for mental health and behavioral disorders, unspecified; Z13.31 Encounter for screening for depression
CPT/HCPCS: 36415; 83970; 96127; 99397; 99497

== ENCOUNTER 2024-12-27 12:39 | Outpatient (AMB) | payer MEDICARE, SELFPAY ==
--- NOTE | 2024-12-27 12:48 | MHC.PC.OV ---
Vital Signs 12/27/24 12:49 Height 5 ft 3 in Weight 172 lb BMI 30.5 BP 140/80 H Blood Pressure Location Rt brachial Position Sitting Respiration 16 Pulse 83 Pulse Source Pulse Oximeter Temp 98.1 F Temp Source Oral Pulse Oximetry (%) 97 Oxygen Delivery Method Room Air Intake Visit Reasons: PE Intake Note: Pt is here today for her PE: last mammogram 09/30/24, cologuard 07/17/22 Allergies cat Allergy (Unknown, Uncoded 12/27/24 13:35) swelling of lips crab meat Allergy (Unknown, Uncoded 12/27/24 13:35) sweling of lips Medication List - Last Reconciled 12/27/24 by Tawny Dunn MD cyclosporine 0.05% (Restasis MultiDose) 1 drp ophthalmic (eye) Q12H doxycycline hyclate 50 mg PO DAILY epinephrine 0.3 mg (0.3 mL) IM Q4H PRN levothyroxine 75 mcg PO QAM Tobacco use date assessed: 12/27/24 Last assessed Fall Risk: 12/27/24 Dental Screening Dental Screen Date: 12/27/24 Did you have a dental visit in the last 12 months?: Yes Did you have a dental problem in the last 6 months where you did not have access to dental care?: No Was dental information given to patient?: Patient has dentist HPI HPI Comments History of Present Illness Details 69-year-old lady here today for physical exam. She has history of primary hyperparathyroidism s/p partial parathyroidectomy 06/22/2024 done at [facility] with left inferior parathyroid as well as hyperplastic right inferior and right superior parathyroid glands excise. The left superior parathyroid gland was normal in appearance and was left intact. Latest labs showed serum calcium at 8.6, patient denies any numbness and tingling but does get occasional nocturnal leg cramps. She is unable to follow-up now with a [facility] endocrine team as they are not within her insurance and has a follow-up appointment with Dr. Dorado at [facility] in April 2025 Has diabetes mellitus, currently diet controlled, with latest hemoglobin A1c at 6%. She has been eating meals on wheels, which she states was consisting mainly of pasta , sauces and meat. She also has not been exercising regularly. Latest fasting labs showed marked elevation in her lipids, and she also has gained a lot of weight since last visit. Up-to-date with her screening mammogram, had a bone density scan done July 2024 now showing osteoporosis in her left femoral neck. She is up-to-date with her eye exam, still goes to see her doctor at [facility] and also has been seen at [facility]. Blood pressure elevated on today's visit, denies any accompanying chest pain, no headache, no lightheadedness or shortness of breath. Latest labs showed decreased renal function. Has an appointment scheduled for next month for consult with Nephrology. REPLACED BY [facility] Medical History (Updated 12/27/24 @ 13:49 by Tawny Dunn MD) Mixed dyslipidemia Osteoporosis History of hyperparathyroidism Osteopenia of lumbar spine Controlled diabetes mellitus type II without complication CKD (chronic kidney disease) Hyperparathyroidism Hypertriglyceridemia Elevated blood pressure reading Partial tear of right rotator cuff Closed fracture of neck of left femur History of herpes zoster History of posterior vitreous detachment White coat syndrome with hypertension Osteopenia Keratitis sicca, bilateral Acquired hypothyroidism Surgical History History of parathyroidectomy Hx of repair of right rotator cuff Social History Household Members: None Housing: Apartment Alcohol intake: never Patient Tobacco Use Status: Never used Tobacco e-Cigarette/Vaping Use: Never Used Second Hand Smoke Exposure: No service: No Current occupational status: retired Current occupation: [employer] Current occupational exposures/hazards: No Cognitive needs: No Hearing needs: Yes Vision needs: No Questionnaire PHQ-9 Over the last 2 weeks, how often have you been bothered by any of the following problems? 1. Little interest or pleasure in doing things: not at all 2. Feeling down, depressed, or hopeless: not at all 3. Trouble falling or staying asleep, or sleeping too much: not at all 4. Feeling tired or having little energy: not at all 5. Poor appetite or overeating: not at all 6. Feeling bad about yourself - or that you are a failure or have let yourself or your family down: not at all 7. Trouble concentrating on things, such as reading the newspaper or watching television: not at all 8. Moving or speaking so slowly that other people could have noticed. Or the opposite - being so fidgety or restless that you have been moving around a lot more than usual: not at all 9. Thoughts that you would be better off or of hurting yourself in some way: not at all Total score: 0 Depression Screening Interpretation: Negative Depression Screening Done: Yes 10418 - PHQ-9 Billing: Yes Source: Developed by Drs. Kehinde Arthur, Nanette Ernst, Remy Andrews and colleagues, with an educational kun from [employer]. Thrive Questionnaire Date Thrive assessed: 12/27/24 I am a: Patient What is your living situation today?: I have a steady place to live Within the past 12 months, did the food you bought not last and you didn't have the money to get more?: Sometimes True Within the past 12 months, did you worry whether your food would run out before you got money to buy more?: Often true Do you have trouble paying for medicines?: No Do you have trouble getting transportation to medical appointments?: No Do you have trouble paying your heating and electricity bill?: No Do you have trouble taking care of your child, family member or friend?: No Do you have trouble with day-to-day activities such as bathing, preparing meals, shopping, managing finances, etc.?: No Are you currently unemployed and looking for a job?: No Are you interested in more education?: No Please select the resources that you would like help with: None Currently or been in a relationship where the following occur: No concerns reported THRIVE Score: 2 AUDIT C Alcohol Use Questionnaire (AUDIT-C) 1. How often do you have a drink containing alcohol?: Never 3. How often do you have six or more drinks on one occasion?: Never Total Score: 0 JENNIFER-7 AMB Questionnaire JENNIFER-7 Date JENNIFER - 7 assessed: 12/27/24 Feeling nervous, anxious, or on edge: 0 = Not at all Not being able to stop or control worryin = Not at all Worrying too much about different things: 0 = Not at all Trouble relaxin = Not at all Being so restless that it is hard to sit still: 0 = Not at all Becoming easily annoyed or irritable: 0 = Not at all Feeling afraid as if something awful might happen: 0 = Not at all Total JENNIFER-7 score (0-4 normal; 5-9 mild; 10-14 moderate; 15-21 severe): 0 Source: Developed by Drs. Kehinde Arthur, Nanette Ernst, Remy Andrews and colleagues, with an educational kun from [employer]. JENNIFER-7 Assessment Billing JENNIFER-7 Assessment Tool: JENNIFER-7 Assessment 58458 Review of Systems Const Reports as per HPI, Denies body aches, Denies fatigue, Denies fever(s), Denies headache(s) and Denies weakness Eyes Details: Goes to [facility] and sees the [facility] Denies change in vision ENT Denies dizziness, Denies headache(s), Reports hearing loss (Has bilateral hearing aids), Denies nasal congestion, Denies nasal discharge and Denies sore throat Card Denies chest pain, Denies lightheadedness, Denies palpitations and Denies dyspnea Resp Denies chest congestion, Denies cough, Denies dyspnea and Denies wheezing GI Denies abdominal pain, Denies change in bowel habits and Denies heartburn Reports no additional complaints Musc Reports no additional complaints Skin/Breast Denies lesions and Denies rash Neuro Denies dizziness, Denies headache(s), Denies Sensory deficit (Neuro) and Denies weakness Psych Reports no additional complaints Endo Denies fatigue, Denies polydipsia, Denies polyuria and Denies palpitations Santosh/Lymph Reports no additional complaints Aller/Immun Denies seasonal rhinorrhea and Denies wheezing Physical exam (Primary Care) Vital Signs: Last Vital Signs Temp 98.1 F 12/27/24 12:49 Pulse 83 12/27/24 12:49 Resp 16 12/27/24 12:49 BP 140/80 H 12/27/24 12:49 Pulse Ox 97 12/27/24 12:49 Oxygen Delivery Method Room Air 12/27/24 12:49 BMI result Body Mass Index 30.5 Tobacco/Smoking Status: Tobacco use Status Tobacco use date assessed 12/27/24 12/27/24 12:52 Patient Tobacco Use Status Never used Tobacco 12/27/24 12:48 e-Cigarette/Vaping Use Never Used 12/27/24 12:48 PHQ-9: PHQ-9 Score PHQ-9: Total score 0 12/27/24 13:22 Depression Screening Interpretation: Negative Thrive Assessment: Date of Thrive Assessment Date Thrive assessed 12/27/24 12/27/24 12:52 Currently or been in a relationship where the following occur: No concerns reported Advance Care Planning discussion: Completed/Scanned Date of discussion: 12/27/24 Who was present: Patient Forms completed: Health Care Proxy and MOLST Time spent: 16-45 minutes Actual minutes spent: 2 Const Other: Alert oriented x3, no acute distress noted, ambulatory with normal gait Orientation/consciousness: No oriented to place HENMT Ears: external ears normal, TM's normal bilaterally, EAC's normal, hearing grossly impaired (Wears bilateral hearing aids) and other Mouth: Normal oral and palatal mucosa present and moist mucous membranes Eyes General: appearance normal, both eyes and all related structures Neck Neck: Yes full ROM, Yes no lymphadenopathy and Yes supple Resp Auscultation: clear to auscultation bilaterally Cardio Other: S1-S2 present regular rate and rhythm GI Other: normal bowel sounds, soft, nontender, no mass palpated General: Yes no CVA tenderness Back/Spine/Pelvis Back: no CVA tenderness and No back tenderness Skin General skin exam: no rashes or lesions noted Neuro General: No oriented to place Sensory Exam: No Sensory deficit (Neuro) Extrem General: Yes full ROM, Yes no joint enlargement, Yes no pedal edema and Yes normal gait Psych Appearance: grossly normal and well kempt Mental Status: mental status grossly normal Speech and movement: Normal speech and movement present Affect: normal affect Results Reviewed Results Reviewed: Laboratory Tests 05/31/24 12/22/24 08:28 07:27 Estimat Average Glucose 126 Hemoglobin A1c % 6.0 TSH 0.54 Free T4 1.18 Name: Samreen Carpio Age/Sex: 69/F : 1955 Unit#: [id number] Attend Dr: Tawny Dunn MD Re12/22/24 Status: DEP REF Location: [facility] Disch: SPEC : [id number] VICKI: 12/22/24 STATUS: COMP REQ : [id number] RECD: 12/22/24-[address]: Tawny Dunn MD COMP: 12/22/249 ENTERED: 12/22/[address]: ORDERED: Met Prof Fast, Lipid Panel, Vitamin D 25-OH, Free T4, TSH Test Result Flag Reference Sodium 143 135-145 mmol/L Potassium 3.8 3.3-5.1 mmol/L CL 110 H 96-108 mmol/L CO2 26 22-29 mmol/L Gap 11 L 12-20 BUN 23 H 9-16 mg/dL Creat 1.24 0.5-1.4 mg/dL eGFR 43 Chronic Kidney Disease: Estimated GFR < 60 mL/min/1.73m2 Severe Kidney Disease: Estimated GFR < 15 mL/min/1.73m2 FBS 110 H 60-99 mg/dL A fasting glucose from 100-125 mg/dl is considered impaired (pre-diabetes). CA 8.6 # 8.4-10.2 mg/dL Triglyceride 175 H <150 mg/dL Desirable Triglyceride: less than 150 mg/dL Borderline High Triglyceride 150-199 mg/dL High Triglyceride: 200-499 mg/dL Very High Triglyceride: greater than or equal to 5OO mg/dL Cholesterol 238 H <200 mg/dL Desirable Cholesterol: less than 200 mg/dL Borderline High Cholesterol: 200-239 mg/dL High Cholesterol: greater than 239 mg/dL LDL Calculated 154 H <100 mg/dL Desirable LDL: less than 100 mg/dL Near Optimal/Above Optimal LDL: 110-129 mg/dL Borderline High LDL: 130-159 mg/dL High LDL: 160-189 mg/dL Very High LDL: greater than or equal to 190 mg/dL HDL 49 >40 mg/dL Desirable HDL: greater than 40 mg/dL Note: This HDL assay may give artificially low results in patients with liver disease. Vitamin D 25-OH 59.0 >30 ng/mL Health Based Reference Values* < 20 ng/mL Deficient 20-30 ng/mL Insufficient > 30 ng/mL Sufficient *Serafin SINGH. N Engl J Med. 2007;357:266-280 There is no well-established upper level of normal vitamin D levels. Some laboratories use 50 ng/mL as an upper limit of normal. However, toxicity is patient-dependent and may occur at any level. Careful correlation with the patient's presentation is necessary and, if there is concern for vitamin D toxicity, treatment should be considered irrespective of the serum level. Care must be taken in interpreting Vitamin D results from different laboratories and methodologies. Published data demonstrated that results from patients undergoing hemodialysis may show a negative bias when tested with various automated 25-OH vitamin D assays when compared to LC-MS/MS. When testing samples from patients whose predominant form of Vitamin D is Vitamin D2, such as patients receiving Vitamin D2 supplementation, results that are subtherapeutic should be confirmed with another method such as LC-MS/MS. Free T4 0.92 0.71-1.85 ng/dL TSH 3rd Gen. 1.87 0.32-4.0 uIU/mL TSH 3rd Generation ([facility]) Coding Level of Care Code Est Pt Prev Care >65y(10043) Diagnoses Annual visit for general adult medical examination with abnormal findings Z00. Acquired hypothyroidism E03.9 Stage 3a chronic kidney disease N18.31 Chronic kidney disease stage: stage 3 (moderate) Chronic kidney disease stage 3 subtype: stage 3a (GFR 45-59) Controlled diabetes mellitus type II without complication E11.9 History of hyperparathyroidism Z86.39 Advanced directives, counseling/discussion Z71.89 Osteoporosis M81.0 Keratitis sicca, bilateral M35.01 Mixed dyslipidemia E78.2 Additional Codes JENNIFER-7 Assessment Billing - JENNIFER-7 Assessment Tool: JENNIFER-7 Assessment 23132 ([id number]) PHQ-9 - 00706 - PHQ-9 Billing: Yes ([id number]) Vital Signs *Quality* - Advance Care Planning discussion: Completed/Scanned ([id number]) Vital Signs *Quality* - Time spent: 16-45 minutes ([id number]) Assessment & Plan Assessment & Plan (1) Annual visit for general adult medical examination with abnormal findings: Code(s): Z00.01 - Encounter for general adult medical examination with abnormal findings Plan: Fasting lab results reviewed with patient. Advised to stop eating her meals on wheels, and start cooking her own meals, and adhere to a low-cholesterol diet and regular exercise. Up-to-date with her screening mammogram, Cologuard test due again in 2025. Up-to-date with her vaccines had a recent bone density scan done which showed presence of osteoporosis, has an appointment with Endocrine later this year for follow-up (2) Acquired hypothyroidism: Code(s): E03.9 - Hypothyroidism, unspecified Category: Medical Plan: Thyroid levels are within normal limits, continued on current dose of levothyroxine 75 mcg daily in the morning (3) CKD (chronic kidney disease): Code(s): N18.9 - Chronic kidney disease, unspecified Category: Medical Qualifiers: Chronic kidney disease stage: stage 3 (moderate) Chronic kidney disease stage 3 subtype: stage 3a (GFR 45-59) Qualified Code(s): N18.31 - Chronic kidney disease, stage 3a Plan: Has an appointment already scheduled to see Dr. Kim next month (4) Controlled diabetes mellitus type II without complication: Code(s): E11.9 - Type 2 diabetes mellitus without complications Category: Medical Plan: Diabetes mellitus well controlled with diet with hemoglobin A1c now at 6%. Currently sees [facility] for her routine eye exam (5) History of hyperparathyroidism: Code(s): Z86.39 - Personal history of other endocrine, nutritional and metabolic disease Category: Medical Plan: Will check intact parathyroid hormone level. Serum calcium within normal limits (6) Advanced directives, counseling/discussion: Code(s): Z71.89 - Other specified counseling Plan: Initiated the conversation about Advanced Directives. Advanced Directives help patients prepare for current and future decisions about their medical treatment and place of care. Discussed with patient that it is a process where a patients current condition and prognosis are reviewed, their wishes for information regarding their illness are elicited, and likely medical dilemmas are presented and options discussed. MOLST form and healthcare proxy completed today. The form can be amended as needed, reviewed yearly and make changes as needed (7) Osteoporosis: Code(s): M81.0 - Age-related osteoporosis without current pathological fracture Category: Medical Plan: Patient has an appointment with Endocrine Clinic, sees Dr. Dorado on April 2025. Advised to do weight-bearing exercise, continue taking vitamin-D 3 supplements at least 2000 units daily and take at least 1200 mg of calcium daily (8) Keratitis sicca, bilateral: Comment: Followed at [facility] Code(s): M35.01 - Sjogren syndrome with keratoconjunctivitis Category: Medical Plan: Goes do [facility], currently on cyclosporine 0.05% eyedrops every 12 hours (9) Mixed dyslipidemia: Code(s): E78.2 - Mixed hyperlipidemia Category: Medical Plan: Reinforced importance of following a low-cholesterol diet and getting regular exercise, stop eating meals on wheels. Repeat fasting lipid panel, liver enzymes in March 2025 prior to next visit Orders: Orders Free T4 (Free Thyroxine) 03/25/25 E03.9 - Hypothyroidism, unspecified, E11.9 - Type 2 diabetes mellitus without complications, N18.31 - Chronic kidney disease, stage 3a, Z78.0 - Asymptomatic menopausal state, Z86.39 - Personal history of other endocrine, nutritional and metabolic disease Aspartate Amino Transferase 03/25/25 E03.9 - Hypothyroidism, unspecified, E11.9 - Type 2 diabetes mellitus without complications, N18.31 - Chronic kidney disease, stage 3a, Z78.0 - Asymptomatic menopausal state, Z86.39 - Personal history of other endocrine, nutritional and metabolic disease Lipid Panel 03/25/25 E03.9 - Hypothyroidism, unspecified, E11.9 - Type 2 diabetes mellitus without complications, N18.31 - Chronic kidney disease, stage 3a, Z78.0 - Asymptomatic menopausal state, Z86.39 - Personal history of other endocrine, nutritional and metabolic disease Basic Metabolic Panel Fasting 03/25/25 E03.9 - Hypothyroidism, unspecified, E11.9 - Type 2 diabetes mellitus without complications, N18.31 - Chronic kidney disease, stage 3a, Z78.0 - Asymptomatic menopausal state, Z86.39 - Personal history of other endocrine, nutritional and metabolic disease Thyroid Stimulating Hormone 03/25/25 E03.9 - Hypothyroidism, unspecified, E11.9 - Type 2 diabetes mellitus without complications, N18.31 - Chronic kidney disease, stage 3a, Z78.0 - Asymptomatic menopausal state, Z86.39 - Personal history of other endocrine, nutritional and metabolic disease Alanine Aminotransferase 03/25/25 E03.9 - Hypothyroidism, unspecified, E11.9 - Type 2 diabetes mellitus without complications, N18.31 - Chronic kidney disease, stage 3a, Z78.0 - Asymptomatic menopausal state, Z86.39 - Personal history of other endocrine, nutritional and metabolic disease Parathyroid Hormone Intact 03/25/25 E03.9 - Hypothyroidism, unspecified, E11.9 - Type 2 diabetes mellitus without complications, N18.31 - Chronic kidney disease, stage 3a, Z78.0 - Asymptomatic menopausal state, Z86.39 - Personal history of other endocrine, nutritional and metabolic disease Parathyroid Hormone Intact Today Z86.39 - Personal history of other endocrine, nutritional and metabolic disease
[2024-12-27 12:49] VITALS: BP 140/80; PULSE 83; RESP 16; TEMP 36.7; O2SAT 97; BMI 30.5
--- OUTSIDE RECORDS SUMMARY | 2024-12-27 13:48 | XMS_ITS | Clinical Summary ---
Author Organization [facility] Address [address] [place] [address] Phone Care Team Providers Care Sieve Grader Tender Name Role Phone Lito Dunn MD Primary Care Provider [phone] Allergies No known active allergies Medications cycloSPORINE (RESTASIS) 0.05 % ophthalmic emulsion 1 drop in the morning and 1 drop in the evening. Active Doxycycline Hyclate 50 MG tablet Take 1 tablet by mouth 1 (one) time each day Active levothyroxine (SYNTHROID, LEVOTHROID) 75 MCG tablet Take 75 mcg by mouth 1 (one) time each day Active EPINEPHrine (EpiPen 2-Shiva) 0.3 MG/0.3ML injection syringe Inject 1 Syringe into the shoulder, thigh, or buttocks if needed for anaphylaxis Active Active Problems Problem Noted Date Diagnosed Date Abnormal finding of blood chemistry 02/23/2023 Hypercalcemia 02/23/2023 Primary hyperparathyroidism 02/23/2023 Stage 3a chronic kidney disease 02/23/2023 Resolved Problems Problem Noted Date Diagnosed Date Resolved Date Partial thickness rotator cuff tear 02/23/202302/2302/23/2023 Rosacea 02/23/2023 02/23/2023 02/23/2023 Hypothyroidism 02/23/2023 02/23/2023 02/23/2023 Encounters Date Type Department Care Team Description 10/21/2024 Orders Only [facility] [address] [place] [address] Margy Carrion MD Chronic kidney disease, stage 2 (mild) 10/13/2024 1:15 PM EDT Office Visit [facility] [address] [id number] Dmitry Woo MD Chronic kidney disease, not otherwise specified (Primary Dx); Hypercalcemia from Last 3 Months Immunizations Immunization Administration Dates Next Due Pneumococcal Polysaccharide 03/06/2015 Family History Medical History Relation Comments Cancer Father Heart disease Father Hypertension Father Stroke Father Cancer Sister Diabetes Sister Heart disease Sister Hypertension Sister Kidney disease Sister Relation Status Comments Father Mother Sister Social History Tobacco Use Types Packs/Day Years Used Date Smoking Tobacco: Never Smokeless Tobacco: Never Alcohol Use Standard Drinks/Week Comments No 0 (1 standard drink = 0.6 oz pur e alcohol) Comments Unknown Sex and Gender Information Value Date Recorded Sex Assigned at Not on file Legal Sex Female 5:07 PM EST Gender Identity Not on file Sexual Orientation Not on file Last Filed Vital Signs Vital Sign Reading Time Taken Comments Blood Pressure 120/78 10/13/2024 1:22 PM EDT Pulse 84 10/13/2024 1:22 PM EDT Temperature - - Respiratory Rate - - Oxygen Saturation 97% 10/22/2023 2:16 PM EDT Inhaled Oxygen Concentration - - Weight 73.9 kg (163 lb) 10/13/2024 1:22 PM EDT Height - - Body Mass Index - - Plan of Treatment Upcoming Encounters Date Type Department Care Team (Late st Contact Info) Description 10/16/2025 1:00 PM EDT Office Visit [facility] [address] [address] Dmitry Woo MD [address] [address] Health Maintenance Due Date Last Done Comments Breast Cancer Screening 1955 Colorectal Cancer Screening: Annual FOBT 2005 Colorectal Cancer Screening: Colonoscopy 2005 Colorectal Cancer Screening: Sigmoidoscopy 2005 Pneumococcal Vaccine: 50+ Years (2 of 2 - PCV) 03/06/2016 02/03/2016, 03/06/2015 Diabetes: Hemoglobin A1C 07/19/2024 Diabetes: Ophthalmology Exam 07/19/2024 Diabetes: Pedal Pulse Checked 07/19/2024 Diabetes: Sensory Foot Exam 07/19/2024 Diabetes: Visual Foot Exam 07/19/2024 Influenza Vaccine (#1) 2025 Pneumococcal Vaccine: Peds ( 0 to 5 Years) and At-Risk Patients (6 to 49 Years) Discontinued 02/03/2016, 03/06/2015 Hepatitis B Vaccine Aged Out No longe r eligible based on patient's age to complete this topic Insurance Medicare Medicare Care Teams Sieve Grader Tender Relationship Specialty Start Date End Date Lito Dunn MD [address] [place] [address] PCP - General Internal Medicine 02/23/23
== END 2024-12-27 13:34 | disposition home or self-care (01) ==
LOC: HO.HMCC 12:40
PROVIDERS: PCP Internal Medicine; Visit Provider Internal Medicine
DX: Z00.01 Encounter for general adult medical examination with abnormal findings (principal); E03.9 Hypothyroidism, unspecified; N18.31 Chronic kidney disease, stage 3a; E11.9 Type 2 diabetes mellitus without complications; Z86.39 Personal history of other endocrine, nutritional and metabolic disease; Z71.89 Other specified counseling; M81.0 Age-related osteoporosis without current pathological fracture; M35.01 Sjogren syndrome with keratoconjunctivitis; E78.2 Mixed hyperlipidemia; Z00.00 Encounter for general adult medical examination without abnormal findings

== ENCOUNTER 2025-01-16 13:27 | Outpatient (AMB) | payer MEDICARE, SELFPAY ==
[2025-01-16 13:39] VITALS: BP 141/80; PULSE 80; O2SAT 97; BMI 29.8
--- NOTE | 2025-01-16 13:39 | HO.NEPHOV ---
Vital Signs 01/16/25 13:39 Height 5 ft 3 in Weight 168 lb BMI 29.8 BP 141/80 H Blood Pressure Location Rt brachial Position Sitting Pulse 80 Pulse Source Pulse Oximeter Pulse Oximetry (%) 97 Oxygen Delivery Method Room Air Intake Visit Reasons: INP: CKD STG 3, HTN/ Conf Electrical Unit Rebuilder Required: No Accompanied by: Self / Same As Patient Allergies cat Allergy (Unknown, Uncoded 12/27/24 13:35) swelling of lips crab meat Allergy (Unknown, Uncoded 12/27/24 13:35) sweling of lips Medication List - Last Reconciled 01/16/25 by Luis Kim MD jie [id number] 250-40-125 mg-mg-unit (Citracal-D3 Plus Magnesium) tabs PO cyclosporine 0.05% (Restasis MultiDose) 1 drp ophthalmic (eye) Q12H doxycycline hyclate 50 mg PO DAILY epinephrine 0.3 mg (0.3 mL) IM Q4H PRN levothyroxine 75 mcg PO QAM Do you need a note to return to daycare/school/sports/work: No HPI Comments Details: The patient is a 69-year-old female presenting with chronic kidney disease and hyperparathyroidism. The chronic kidney disease is marked by fluctuating GFR values, with a recent GFR of 43 ml/mt Previous assessments showed a GFR of 59% in June, An ultrasound and blood work revealed normal kidney appearance and a benign angiomyolipoma. The patient underwent parathyroid surgery in June 2024 , removing three out of four glands due to primary hyperparathyroidism. Post-surgery, PTH levels were initially stable but have recently increased to 194 pg/mL. Seen by academic dean and currently on calcium supplementation. The patient denies any history of high blood pressure, diabetes, or kidney stones. 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 [facility] Medical History Mixed dyslipidemia Osteoporosis History of hyperparathyroidism Osteopenia of lumbar spine Controlled diabetes mellitus type II without complication CKD (chronic kidney disease) Hyperparathyroidism Hypertriglyceridemia Elevated blood pressure reading Partial tear of right rotator cuff Closed fracture of neck of left femur History of herpes zoster History of posterior vitreous detachment White coat syndrome with hypertension Osteopenia Keratitis sicca, bilateral Acquired hypothyroidism Surgical History History of parathyroidectomy Hx of repair of right rotator cuff Social History Household Members: None Housing: Apartment Alcohol intake: never Patient Tobacco Use Status: Never used Tobacco e-Cigarette/Vaping Use: Never Used Second Hand Smoke Exposure: No service: No Current occupational status: retired Current occupation: [employer] Current occupational exposures/hazards: No Cognitive needs: No Hearing needs: Yes Vision needs: No Review of Systems Const Denies anorexia, Denies fever(s) and Denies weakness Eyes Denies blurry vision Card Denies no additional complaints and Denies dyspnea Resp Reports no additional complaints, Reports cough and Denies dyspnea GI Denies melena and Denies diarrhea Denies hematuria Musc Denies tingling Skin/Breast Denies rash Neuro Denies focal weakness, Denies tingling, Denies tremor(s) and Denies weakness Physical Exam Vital Signs: Last Vital Signs Pulse 80 01/16/25 13:39 BP 141/80 H 01/16/25 13:39 Pulse Ox 97 01/16/25 13:39 Oxygen Delivery Method Room Air 01/16/25 13:39 BMI result Body Mass Index 29.8 Const General: comfortable Nutritional Appearance: well nourished Orientation/consciousness: patient oriented x3 HEENT Head: No normal to inspection Mouth: moist mucous membranes Neck Neck: Yes supple and Yes no JVD Resp Auscultation: clear to auscultation bilaterally, no rales and No rub present Cardio Jugular venous distension: no JVD Palpation: no palpable S3 and no palpable S4 Heart sounds: no rubs GI Palpation (GI): Soft to palpation and nontender Percussion: No Fluid wave present General: Yes no CVA tenderness Back/Spine/Pelvis Back: no CVA tenderness Skin General skin exam: no rashes or lesions noted Neuro General: patient oriented x3 Extrem General: Yes no pedal edema and No clubbing Results Reviewed Nephrology Results: Sodium, (135-145) 143 mmol/L 12/22/24 Potassium, (3.3-5.1) 3.8 mmol/L 12/22/24 Chloride, (96-108) 110 mmol/L H 07/10/25 Carbon Dioxide, (22-29) 26 mmol/L 12/22/24 BUN, (9-16) 23 mg/dL H 12/22/24 Creatinine, (0.5-1.4) 1.24 mg/dL 12/22/24 Calcium, (8.4-10.2) 8.6 mg/dL Δ 12/22/24 PTH Intact, (8.7-77.1) 194.2 pg/mL H 12/27/24 Urine Creatinine 167.26 mg/dL 12/22/24 Renal US 03/06/23 Assessment & Plan Assessment & Plan (1) CKD (chronic kidney disease): Code(s): N18.9 - Chronic kidney disease, unspecified Category: Medical Qualifiers: Chronic kidney disease stage: stage 3 (moderate) Chronic kidney disease stage 3 subtype: stage 3a (GFR 45-59) Qualified Code(s): N18.31 - Chronic kidney disease, stage 3a (2) Hyperparathyroidism: Code(s): E21.3 - Hyperparathyroidism, unspecified Category: Medical Plan Samreen has mild CKD. The EGFR is between 40 and 50 mL/minute for the past 3 years. No urinalysis available at this time. There could be a component of VIOLETA due to hypoperfusion Based on recent renal ultrasonogram she does not have any obstruction. That could be age-related loss of nephrons. However she needs a 24 urine collection to obtain a creatinine clearance to better assess renal function. Initially she had primary hyperparathyroidism. Status post parathyroidectomy. The recent elevation in the parathyroid hormone may be related to secondary hyperparathyroidism. Plan Obtain 24 urine collection for creatinine clearance. Encouraged to increase p.o. fluid intake to avoid dehydration. Continue to avoid nephrotoxic agents including NSAIDs. Optimize serum calcium. Monitor intact PTH and add vitamin-D analogs if necessary. Further workup will be based on the outcome of the above baseline investigations Orders: Orders Creatinine, 24 Hr Group Today N18.31 - Chronic kidney disease, stage 3a Creatinine Clearance Urine 24U Today N18.31 - Chronic kidney disease, stage 3a UA and rflx microscopic Today N18.31 - Chronic kidney disease, stage 3a Basic Metabolic Panel Today N18.31 - Chronic kidney disease, stage 3a Coding Level of Care Code New Pt Level 4 (37599) Diagnoses Stage 3a chronic kidney disease N18.31 Chronic kidney disease stage: stage 3 (moderate) Chronic kidney disease stage 3 subtype: stage 3a (GFR 45-59) Hyperparathyroidism E21.3
--- OUTSIDE RECORDS SUMMARY | 2025-01-16 13:43 | XMS_ITS | Encounter Summary ---
Author Organization [facility] Address [address] [place] [address] Phone Care Team Providers Care Embroidery Machine Operator Name Role Phone Lito Dunn MD Primary Care Provider [phone]- [phone] Reason for Visit * Reason Comments Med Refill Encounter Details Date Type Department Care Team (Late Contact Info) Description 08/06/2023 Refill [facility] [address] [facility] [address] [place] [address] Margy Carrion MD Social History Tobacco Use Types Packs/Day Years Used Date Smoking Tobacco: Never Smokeless Tobacco: Never Alcohol Use Standard Drinks/Week Comments No 0 (1 standard drink = 0.6 oz pur e alcohol) Comments Unknown Sex and Gender Information Value Date Recorded Sex Assigned at Not on file Legal Sex Female 5:07 PM EST Gender Identity Not on file Sexual Orientation Not on file documented as of this encounter Plan of Treatment Upcoming Encounters Date Type Department Care Team (Late st Contact Info) Description 10/16/2025 1:00 PM EDT Office Visit [facility] [address] [facility] [address] [place] [phone] Dmitry Woo MD [address] [facility] [address] [place] [address] documented as of this encounter Visit Diagnoses Not on filedocumented in this encounter Care Teams Embroidery Machine Operator Relationship Specialty Start Date End Date Lito Dunn MD [address] [place] [phone] PCP - General Internal Medicine 02/23/23 documented as of this encounter
== END 2025-01-16 14:00 | disposition home or self-care (01) ==
LOC: HO.HKA 13:27
PROVIDERS: PCP Internal Medicine; Referring Provider Internal Medicine; Visit Provider Internal Medicine Hypertension Specialist
DX: N18.31 Chronic kidney disease, stage 3a (principal); E21.3 Hyperparathyroidism, unspecified
CPT/HCPCS: 99204

== ENCOUNTER → 2025-01-16 13:27 | Outpatient (BNVA) | payer MEDICARE, SELFPAY | PROVIDERS: PCP Internal Medicine; Referring Provider Internal Medicine; Visit Provider Internal Medicine Hypertension Specialist | DX: N18.31 Chronic kidney disease, stage 3a (principal); E23.1 Drug-induced hypopituitarism; R03.0 Elevated blood-pressure reading, without diagnosis of hypertension | CPT/HCPCS: 99202 ==

== ENCOUNTER 2025-01-18 07:08 | Outpatient (REF) | payer MEDICARE, SELFPAY ==
[2025-01-18 08:33] LABS: Appearance Urine Clear; Glucose Urine UA Negative (Negative); PH 5.5 (5.0-9.0); Specific Gravity - Urine 1.010 (1.005-1.025); UMIC TRIGGER UA YES
[2025-01-18 08:50] LABS: Anion Gap 11 (12-20); Blood Urea Nitrogen 27 mg/dL (9-16); Calcium 8.8 mg/dL (8.4-10.2); Carbon Dioxide 26 mmol/L (22-29); Chloride 112 mmol/L (96-108); Estimated Glomerular Filt Rate 39; Potassium 4.0 mmol/L (3.3-5.1); Sodium 145 mmol/L (135-145)
[2025-01-18 08:51] LABS: Total Volume 24 Hour Urine 850 mL
[2025-01-18 09:25] LABS: Creatinine, mg/dL 114.49
[2025-01-18 18:02] LABS: Creatinine, mg/dL 113.10
[2025-01-18 19:29] LABS: Total Volume 24 Hour Urine 850 mL
[2025-01-18 19:30] LABS: Creatinine (CrCl) 1.35 mg/dL (0.5-1.4)
== END 2025-01-18 07:09 | disposition home or self-care (01) ==
LOC: HO.LAB 07:08
PROVIDERS: PCP Internal Medicine; Visit Provider Internal Medicine Hypertension Specialist
DX: N18.31 Chronic kidney disease, stage 3a (principal)
CPT/HCPCS: 36415; 80048; 81001; 82570; 82575

== ENCOUNTER 2025-02-20 14:01 | Outpatient (AMB) | payer MEDICARE, SELFPAY ==
[2025-02-20 14:02] VITALS: BP 170/90; PULSE 89; O2SAT 96; BMI 30.5
--- NOTE | 2025-02-20 14:02 | HO.NEPHOV ---
Vital Signs 02/20/25 14:02 Height 5 ft 3 in Weight 172 lb BMI 30.5 BP 170/90 H Blood Pressure Location Lt brachial Position Sitting Pulse 89 Pulse Source Pulse Oximeter Pulse Oximetry (%) 96 Oxygen Delivery Method Room Air Intake Visit Reasons: FU-Conf Line Service Technician Required: No Accompanied by: Self / Same As Patient Allergies cat Allergy (Unknown, Uncoded 12/27/24 13:35) swelling of lips crab meat Allergy (Unknown, Uncoded 12/27/24 13:35) sweling of lips Medication List - Last Reconciled 02/20/25 by Luis Kim MD jie [id number] 250-40-125 mg-mg-unit (Citracal-D3 Plus Magnesium) tabs PO cyclosporine 0.05% (Restasis MultiDose) 1 drp ophthalmic (eye) Q12H doxycycline hyclate 50 mg PO DAILY epinephrine 0.3 mg (0.3 mL) IM Q4H PRN levothyroxine 75 mcg PO QAM HPI Comments Details: The patient is a 69-year-old female presenting with chronic kidney disease and hyperparathyroidism. The chronic kidney disease is marked by fluctuating GFR values, with a recent GFR of 43 ml/mt Previous assessments showed a GFR of 59% in June, An ultrasound and blood work revealed normal kidney appearance and a benign angiomyolipoma. The patient underwent parathyroid surgery in June 2024 , removing three out of four glands due to primary hyperparathyroidism. Post-surgery, PTH levels were initially stable but have recently increased to 194 pg/mL. Seen by partition assembly machine operator and currently on calcium supplementation. The patient denies any history of high blood pressure, diabetes, or kidney stones. 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 02/20/25 The patient is a 69-year-old female presenting with hypertension and kidney function monitoring. Hypertension is noted with clinic readings of 170/110 mmHg, but home readings are 115/70 mmHg, indicating white coat syndrome. Chronic kidney disease is evidenced by creatinine fluctuations, with levels from 1.24 mg/dL to 1.35 mg/dL, then down to 1.1 mg/dL. Hyperparathyroidism;s/p parathyroid surgery- reducing parathyroid hormone down to 94. Medical History: - Hypertension - Chronic kidney disease - Hyperparathyroidism Surgical History: - Parathyroid surgery Medications: - Citracal for hyperparathyroidism - Cyclosporine eye drops - Doxycycline Social History: - Reports adequate fluid intake Diagnostic Results: - Labs: Creatinine levels fluctuating between 1.24 mg/dL and 1.35 mg/dL, then down to 1.1 mg/dL - Labs: Parathyroid hormone reduced from 194 to 94 - Labs: Calcium level at 8.9 mg/dL - Tests: 24-hour urine collection showing kidney function at 49.4% PFSH Medical History Mixed dyslipidemia Osteoporosis History of hyperparathyroidism Osteopenia of lumbar spine Controlled diabetes mellitus type II without complication CKD (chronic kidney disease) Hyperparathyroidism Hypertriglyceridemia Elevated blood pressure reading Partial tear of right rotator cuff Closed fracture of neck of left femur History of herpes zoster History of posterior vitreous detachment White coat syndrome with hypertension Osteopenia Keratitis sicca, bilateral Acquired hypothyroidism Surgical History History of parathyroidectomy Hx of repair of right rotator cuff Social History Household Members: None Housing: Apartment Alcohol intake: never Patient Tobacco Use Status: Never used Tobacco e-Cigarette/Vaping Use: Never Used Second Hand Smoke Exposure: No service: No Current occupational status: retired Current occupation: [employer] Current occupational exposures/hazards: No Cognitive needs: No Hearing needs: Yes Vision needs: No Physical Exam Vital Signs: Last Vital Signs Pulse 89 02/20/25 14:02 BP 170/90 H 02/20/25 14:02 Pulse Ox 96 02/20/25 14:02 Oxygen Delivery Method Room Air 02/20/25 14:02 BMI result Body Mass Index 30.5 Const General: comfortable Nutritional Appearance: well nourished Orientation/consciousness: patient oriented x3 HEENT Head: No normal to inspection Mouth: moist mucous membranes Neck Neck: Yes supple and Yes no JVD Resp Auscultation: clear to auscultation bilaterally, no rales and No rub present Cardio Jugular venous distension: no JVD Palpation: no palpable S3 and no palpable S4 Heart sounds: no rubs GI Palpation (GI): Soft to palpation and nontender Percussion: No Fluid wave present General: Yes no CVA tenderness Back/Spine/Pelvis Back: no CVA tenderness Skin General skin exam: no rashes or lesions noted Neuro General: patient oriented x3 Extrem General: Yes no pedal edema and No clubbing Results Reviewed Nephrology Results: Sodium, (135-145) 145 mmol/L 01/18/25 Potassium, (3.3-5.1) 4.0 mmol/L 01/18/25 Chloride, (96-108) 112 mmol/L H 01/18/25 Carbon Dioxide, (22-29) 26 mmol/L 01/18/25 BUN, (9-16) 27 mg/dL H 01/18/25 Creatinine, (0.5-1.4) 1.35 mg/dL 01/18/25 Calcium, (8.4-10.2) 8.8 mg/dL 01/18/25 PTH Intact, (8.7-77.1) 194.2 pg/mL H 12/27/24 Urine Protein, (Neg-Trace) Negative mg/dL 01/18/25 Urine Creatinine 167.26 mg/dL 12/22/24 Renal US 03/06/23 Assessment & Plan Assessment & Plan (1) CKD (chronic kidney disease): Code(s): N18.9 - Chronic kidney disease, unspecified Category: Medical Qualifiers: Chronic kidney disease stage: stage 3 (moderate) Chronic kidney disease stage 3 subtype: stage 3a (GFR 45-59) Qualified Code(s): N18.31 - Chronic kidney disease, stage 3a (2) Hyperparathyroidism: Code(s): E21.3 - Hyperparathyroidism, unspecified Category: Medical Plan Samreen has mild CKD. The EGFR is between 40 and 60 mL/minute for the past 3 years. urinalysis -benign There could be a component of VIOLETA due to hypoperfusion Based on recent renal ultrasonogram she does not have any obstruction. 24 urine collection ;shows low volume creatinine clearance of 55 ml/mt Initially she had primary hyperparathyroidism. Status post parathyroidectomy. The recent elevation in the parathyroid hormone may be related to secondary hyperparathyroidism. Plan Encouraged to increase p.o. fluid intake to avoid dehydration. Continue to avoid nephrotoxic agents including NSAIDs. monitor serum calcium and intact PTH Watch BP at home Most likdemarcus has white coat HTN Encouraged to call if SBP > 140 mmHG at home Orders: Orders Basic Metabolic Panel 6 Months N18.31 - Chronic kidney disease, stage 3a Coding Level of Care Code Est Pt Level 4 (79727) Diagnoses Stage 3a chronic kidney disease N18.31 Chronic kidney disease stage: stage 3 (moderate) Chronic kidney disease stage 3 subtype: stage 3a (GFR 45-59) Hyperparathyroidism E21.3
--- OUTSIDE RECORDS SUMMARY | 2025-02-20 16:25 | XMS_ITS | Clinical Summary ---
Author Organization [facility] Address [address] [facility] [address] [place] [address] Phone Care Team Providers Care Seed Cleaner Name Role Phone Lito Dunn MD Primary Care Provider [phone]- [phone] Allergies No known active allergies Medications cycloSPORINE [...] 02/23/2023 02/23/2023 02/23/2023 Hypothyroidism 02/23/2023 02/23/2023 02/23/2023 Immunizations Immunization Administration Dates Next Due Pneumococcal [...] Office Visit [facility] [address] [phone] Dmitry Woo MD [address] [phone] Health Maintenance Due Date Last Done Comments [...] patient's age to complete this topic Insurance [id number] Medicare [facility] Medicare Care Teams Seed Cleaner Relationship Specialty Start Date End Date Lito Dunn MD [address] [place] [address] PCP - General Internal Medicine 02/23/23
--- OUTSIDE RECORDS SUMMARY | 2025-02-20 16:25 | XMS_ITS | Encounter Summary ---
Author Organization [facility] Address [address] [place] [address] [place] [phone] Phone Care Team Providers Care Language Interpreter Name Role Phone Tawny Dunn MD Primary Care Provider Encounter Details Date Type Department Care Team (Late st Contact Info) Description 01/16/2025 Ancillary Orders [address] [address] System, Provider Not In, [facility] [address] [address] Social History Tobacco Use Types Packs/Day Years Used Date Smoking Tobacco: Never Assessed Education Answer Date Recorded Are you interested in more education? Not on janette e 08/02/2024 Are you concerned about learning? Not on file 08/02/2024 No 08/02/2024 No 08/02/2024 Digital Access Answer Date Recorded No 08/02/2024 No 08/02/2024 Reliable internet access at home? Not on file 08/02/2024 Device with a working camera? Not on file Comments Unknown Sex and Gender Information Value Date Recorded Sex Assigned at Not on file Legal Sex Female 9:53 PM EDT Gender Identity Not on file Sexual Orientation Not on file documented as of this encounter Plan of Treatment Upcoming Encounters Date Type Department Care Team (Late st Contact Info) Description 09/14/2025 11:00 AM EDT Office Visit [facility] [address] [place] [address] [phone] Lizzy Doraod MD [address] [place] [phone] [email or web address] documented as of this encounter Results * DXA Outside (No Interpretation) (06/07/2018 12:00 AM EST) Narrative Record, 01/16/2025 2:18 PM EDT This study is for PACS storage only and not for interpretation. Procedure Note Record, 01/16/2025 This study is for PACS storage only and not for interpretation. us Provider Not In System [facility] OUTSIDE IMAGING W /OUT INTERPRETATION Final Result documented in this encounter Visit Diagnoses Not on filedocumented in this encounter Care Teams Language Interpreter Relationship Specialty Start Date End Date Tawny Dunn MD [facility] [place] [address] PCP - General Internal Medicine 07/25/24 documented as of this encounter Additional Source Comments The information contained in this document represents components of the legal health record. It is not the complete legal health record.[facility]
--- OUTSIDE RECORDS SUMMARY | 2025-02-20 16:25 | XMS_ITS | Encounter Summary ---
Author Organization [facility] Address [address] [place] [address] [place] [phone] Phone Care Team Providers Care Advertising Executive Name Role Phone Tawny Dunn MD Primary Care Provider Encounter Details Date Type Department Care Team (Late st Contact Info) Description 01/12/2025 Ancillary Orders [address] [address] System, Provider Not In, [facility] [address] [address] Social History Tobacco Use Types Packs/Day Years [...] 11:00 AM EDT Office Visit [facility] [address] [place] [address] [phone] Lizzy Dorado MD [address] [place] [phone] [email or web address] documented as of this encounter Results * DXA Outside (No Interpretation) (09/30/2024 12:00 AM EDT) Narrative Record, 01/12/2025 4:10 PM EDT This study is for PACS storage only and not for interpretation. Procedure Note Record, 01/12/2025 This study is for PACS storage only and not for interpretation. us Provider Not In System PhD IMG OUTSIDE IMAGING W /OUT INTERPRETATION Final Result documented in this encounter Visit Diagnoses Not on filedocumented in this encounter Care Teams Advertising Executive Relationship Specialty Start Date End Date Tawny Dunn MD [facility] [place] [address] PCP - General Internal Medicine 07/25/24 documented as of this encounter Additional Source Comments The information contained in this document represents components of the legal health record. It is not the complete legal health record.[facility]
--- OUTSIDE RECORDS SUMMARY | 2025-02-20 16:25 | XMS_ITS | Encounter Summary ---
Author Organization [facility] Address [address] [place] [address] [place] [phone] Phone Care Team Providers Care Utility System Repairer Name Role Phone Tawny Dunn MD Primary Care Provider Encounter Details Date Type Department Care Team (Late st Contact Info) Description 01/16/2025 Ancillary Orders [address] [address] System, Provider Not In, [facility] [address] [address] Social History Tobacco Use Types Packs/Day Years [...] 11:00 AM EDT Office Visit [facility] [address] [place] [address] [phone] Lizzy Dorado MD [address] [place] [phone] [email or web address] documented as of this encounter Results * DXA Outside (No Interpretation) (06/18/2020 12:00 AM EST) Narrative Record, 01/16/2025 2:15 PM EDT This study is for PACS storage only and not for interpretation. Procedure Note Record, 01/16/2025 This study is for PACS storage only and not for interpretation. us Provider Not In System PhD IMG OUTSIDE IMAGING W /OUT INTERPRETATION Final Result documented in this encounter Visit Diagnoses Not on filedocumented in this encounter Care Teams Utility System Repairer Relationship Specialty Start Date End Date Tawny Dunn MD [facility] [place] [address] PCP - General Internal Medicine 07/25/24 documented as of this encounter Additional Source Comments The information contained in this document represents components of the legal health record. It is not the complete legal health record.[facility]
--- OUTSIDE RECORDS SUMMARY | 2025-02-20 16:25 | XMS_ITS | Clinical Summary ---
Author Organization [facility] Address [address] [place] [address] Phone Care Team Providers Care Aids Counselor Name Role Phone Tawny Dunn MD Primary Care Provider Allergies Active Allergy Reactions Criticality Noted Date Comments Cat Dander Swelling 01/12/2025 Cat's Claw 01/12/2025 Shellfish Containing Products Swelling 2024 CRAB MEAT ONLY Medications levothyroxine (SYNTHROID, LEVOTHROID) 75 MCG tablet Take 75 mcg by mouth every morning. Active RESTASIS MULTIDOSE 0.05 % Drop INSTILL 1 DROP INTO BOTH EYES TWO TIMES A DAY 12 HOURS APART Active calcium citrate/vitamin D3 (CITRACAL + D MAXIMUM ORAL) Acti ve doxycycline hyclate (VIBRAMYCIN) 50 MG capsule Take 50 mg by mouth daily. 08/05/2023 Active EPINEPHrine 0.3 mg/0.3 mL auto-injector Inject 1 Syringe into the muscle. Active Active Problems Problem Noted Date Diagnosed Date Sicca syndrome with keratoconjunctivitis 025 Hyperparathyroidism 01/12/2025 Overview (01/12/2025): Ptx x 3 06/2024 - 240 mg hypercellular parathyroid w/o fatty rim, 82 mg right inferior parathyroid & 29 mg right superior parathyroid, intra-op PTH 94 to 31 Assessment & Plan (01/12/2025 6:25 PM EDT): S/p resection of 3 parathyroid glands in June for mild primary hyperparathyroidism. Recent labs show significantly elevated PTH with low normal calcium, c/w secondary hyperparathyroidism due to low calcium intake. Limited dairy intake, stopped post-op calcium supplements. Will increase calcium intake to a total of 1200 mg/day via diet and/or supplement & repeat labs in ~ 6 weeks. Will adjust rx further at that time as appropriate. Age-related osteoporosis wit hout current pathological fracture 01/12/2025 Assessment & Plan (01/12/2025 6:21 PM EDT): Osteoporosis of femoral neck on recent bone density, done @ different facility than previous. No clinical hx fracture, but apparently has been noted to have evidence of femur fracture on left on imaging. Provided w/ written literature from [employer]. Will work on correcting secondary hyperparathyroidism & re-visit @ future visits. Do anticipate some improvement in bone density following parathyroidectomy. CKD (chronic kidney disease) 01/06/2008 Overview (01/12/2025): I have CKD level 2-3 depending on GFR levels Hypothyroidism 01/06/2008 Assessment & Plan (01/12/2025 6:29 PM EDT): Euthryoid on recent labs. Encounters Date Type Department Care Team Description 02/14/2025 Orders Only [facility] Endocrinology [address] [place] [address] Lizzy Dorado MD Hyperparathyroidism (Primary Dx) 02/10/2025 7:42 AM EDT - 02/10/2025 11:59 PM EDT Hospital Encounter [facility] [address] [place] [address] Lizzy Dorado MD Discharge Disposition: Home or Self Care 01/27/2025 Orders Only [facility] [place] [address] Lizzy Dorado MD 01/16/2025 Ancillary Orders [address] [address] System, Provider Not In, PhD 01/16/2025 Ancillary Orders [address] [place] [address] System, Provider Not In, PhD 01/16/2025 Ancillary Orders [address] [address] System, Provider Not In, PhD 01/16/2025 Ancillary Orders [address] [address] System, Provider Not In, PhD 01/16/2025 Ancillary Orders [address] [address] System, Provider Not In, PhD 01/12/2025 10:00 AM EDT Office Visit [facility] [address] [place] [address] Lizzy Dorado MD Hyperparathyroidism (Primary Dx); Age-related osteoporosis without current pathological fracture; Acquired hypothyroidism 01/12/2025 Ancillary Orders [address] [address] System, Provider Not In, PhD 01/12/2025 Orders Only [facility] [address] [place] [address] Provider, MD Karlos 01/12/2025 Telephone [facility] [address] [place] [address] Lizzy Dorado MD from Last 3 Months Family History Medical History Relation Comments Lung cancer Sister Thyroid nodules Sister Hyperparathyroidism Neg Hx Nephrolithiasis Neg Hx Osteoporosis Neg Hx Relation Status Comments Sister Social History Tobacco Use Types Packs/Day [...] Sign Reading Time Taken Comments Blood Pressure 128/82 01/12/2025 9:48 AM EDT Pulse 78 01/12/2025 9:48 AM EDT Temperature - - Respiratory Rate - - Oxygen Saturation - - Inhaled Oxygen Concentration - - Weight 74.8 kg (165 lb) 01/12/2025 9:48 AM EDT Height 161.3 cm (5' 3.5 ) 01/12/2025 9:48 AM EDT Body Mass Index 28.77 01/12/2025 9:48 AM EDT Plan of Treatment Upcoming Encounters Date Type Department Care Team (Late st Contact Info) Description 09/14/2025 11:00 AM EDT Office Visit [facility] [address] [place] [address] [place] [address] Lizzy Dorado MD [address] [place] [address] Health Maintenance Due Date Last Done Comments Adult Td,Tdap Booster 1956 LIPID PANEL 1956 TSH LEVEL 1956 DEPRESSION SCREENING 1968 SMOKING Hx and SMOKELESS TOB ACCO SCREENING 1969 HEPATITIS C SCREENING 1974 MAMMOGRAM 1996 COLONOSCOPY 2001 FIT TEST 2001 FOBT 2001 SIGMOIDOSCOPY 2001 VIRTUAL COLONOSCOPY 2001 PNEUMOCOCCAL VACCINES (50+ y ears) (1 of 1 - PCV) 2006 ZOSTER VACCINES (1 of 2) 2006 OSTEOPOROSIS SCREENING INITI AL (ONE-TIME) 2021 INFLUENZA VACCINE (#1) 2025 02/03/2016 COVID-19 VACCINE (1 - 2023-2 5 season) 2025 COLOGUARD 07/08/2025 07/08/2022 COLORECTAL CANCER SCREENING 07/08/2025 SCREENING FOR DIABETES 02/11/2028 02/10/2025 RSV VACCINE (1 - 1-dose 75+ series) 10/08/2031 HEPATITIS A VACCINES Aged Out No long er eligible based on patient's age to complete this topic HIB VACCINES Aged Out No longer eligi ble based on patient's age to complete this topic MENINGOCOCCAL VACCINES (ACWY) Aged Out No longer eligible based on patient's age to complete this topic MENINGOCOCCAL VACCINES (B) Aged Out N o longer eligible based on patient's age to complete this topic Medical Devices Not on file Procedures Procedure Name Priority Date/Time Associated Diagnosis Comments COMPREHENSIVE METABOLIC PANEL Routine 02/10/2025 7:50 AM EDT Hyperparathyroidism Age-related osteoporosis without current pathological fracture 25-OH VITAMIN D Routine 02/10/2025 7:50 AM EDT Hyperparathyroidism Age-related osteoporosis without current pathological fracture PARATHYROID HORMONE (PTH) Routine 02/10/2025 7:50 AM EDT Hyperparathyroidism Age-related osteoporosis without current pathological fracture PHOSPHORUS Routine 02/10/2025 7:50 AM EDT Hyperparathyroidism Age-related osteoporosis without current pathological fracture OUTSIDE LAB Routine 01/12/2025 1:57 PM EDT from Last 3 Months Results * (ABNORMAL) Comprehensive metabolic panel (02/10/2025 7:50 AM EDT) SODIUM 143 133 - 146 mmol/L [facility] POTASSIUM 4.2 3.3 - 5.1 mmol/L [facility] CHLORIDE 107 96 - 108 mmol/L [facility] CO2 27 21 - 35 mmol/L [facility] BUN 23(H) 6 - 19 mg/dL [facility] CREATININE 1.10 0.5 - 1.5 mg/dL [facility] GLUCOSE 114(H) 70 - 99 mg/dL [facility] ALBUMIN 4.2 3.9 - 4.8 g/dL [facility] TOTAL PROTEIN 7.5 6.5 - 8.0 g/dL [facility] CALCIUM 8.9 8.4 - 10.3 mg/dL [facility] ALKALINE PHOSPHATASE 93 39 - 117 U/L [facility] TOTAL BILIRUBIN 0.5 0.0 - 1.2 mg/dL [facility] AST 23 0 - 37 U/L [facility] ALT 14 0 - 40 U/L [facility] GLOBULIN 3.3 1 - 4.8 g/dL [facility] EGFR 55(L) >59 mL/min/1.7 3m2 [facility] Comment:Estimated glomerular filtration rate calculated using the CKD-EPI refit equation. ANION GAP 13 10 - 20 mmol/L [facility] Blood 02/10/2025 7:50 AM EDT 02/10/2025 7:59 AM EDT us Lizzy Dorado MD LAB BLOOD ORDERABLES F inal Result Performing Organization Address City/[facility]/ZIP Co de Phone Number [address] [address] * 25-OH vitamin D (02/10/2025 7:50 AM EDT) 25 OH VIT D (TOTAL) 46 30 - 60 ng/mL [facility] Blood 02/10/2025 7:50 AM EDT 02/10/2025 7:59 AM EDT us Lizzy Dorado MD LAB BLOOD ORDERABLES F inal Result Performing Organization Address [facility]/ZIP Co de Phone Number [address] [address] * Phosphorus (02/10/2025 7:50 AM EDT) PHOSPHORUS 3.0 2.7 - 4.5 mg/dL [facility] Blood 02/10/2025 7:50 AM EDT 02/10/2025 7:59 AM EDT us Lizzy Dorado MD LAB BLOOD ORDERABLES F inal Result Performing Organization Address City/[facility]/ZIP Co de Phone Number [address] [address] * (ABNORMAL) Parathyroid hormone (PTH) (02/10/2025 7:50 AM EDT) PARATHYROID HORMONE 94(H) 15 - 65 pg/mL [facility] Blood 02/10/2025 7:50 AM EDT 02/10/2025 7:59 AM EDT Lizzy Dorado MD LAB BLOOD ORDERABLES F inal Result [facility] [address] [place] [address] * Outside Lab (01/12/2025 1:57 PM EDT) us Historical Provider LAB BLOOD ORDERABLES Nikky l Result from Last 3 Months Insurance MEDICARE REPLACEMENT Member Subscriber Plan / Payer (Ef fective 2024-Present) Name:FranciscaNoble moctezumaice Relation to Subscriber:Self Name:Shirin Samreen Payer ID:[id number] (NAIC) Type:Medicare Address: [place] [id number] [place] [address] MEDICARE REPLACEMENT MEDICARE REPLACEMENT MEDICARE REPLACEMENT Member Subscriber Plan / Payer (Ef fective 2024-Present) Name:Samreen Carpio Relation to Subscriber:Self Name:Samreen Carpio Payer ID:[id number] (NAIC) Type:Medicare Address: [place] [id number] MEDICARE REPLACEMENT [facility] MEDICARE REPLACEMENT Care Teams Aids Counselor Relationship Specialty Start Date End Date Tawny Dunn MD [address] [facility] [place] [address] PCP - General Internal Medicine 07/25/24 Additional Source Comments The information contained in this document represents components of the legal health record. It is not the complete legal health record.[facility]
--- OUTSIDE RECORDS SUMMARY | 2025-02-20 16:25 | XMS_ITS | Encounter Summary ---
Author Organization [facility] Address [address] [place] [address] [place] [address] Phone Care Team Providers Care Tie Puller Name Role Phone Tawny Dunn MD Primary Care Provider Encounter Details Date Type Department Care Team (Late st Contact Info) Description 01/27/2025 Orders Only [facility] [address] [place] [address] Lizzy Dorado MD [address] [place] [phone] [email or web address] Social History Tobacco Use Types Packs/Day Years [...] 11:00 AM EDT Office Visit [facility] [address] [place] [address] Lizzy Dorado MD [address] [place] [phone] [email or web address] documented as of this encounter Visit Diagnoses Not on filedocumented in this encounter Care Teams Tie Puller Relationship Specialty Start Date End Date Tawny Dunn MD [facility] [place] [address] PCP - General Internal Medicine 07/25/24 documented as of this encounter Additional Source Comments The information contained in this document represents components of the legal health record. It is not the complete legal health record.[facility]
--- OUTSIDE RECORDS SUMMARY | 2025-02-20 16:25 | XMS_ITS | Encounter Summary ---
Author Organization [facility] Address [address] [place] [address] [place] [address] Phone Care Team Providers Care Automation Specialist Name Role Phone Tawny Dunn MD Primary Care Provider Encounter Details Date Type Department Care Team (Late st Contact Info) Description 01/16/2025 Ancillary Orders [address] [address] System, Provider Not In, PhD Partners [address] [address] Social History Tobacco Use Types Packs/Day Years [...] 11:00 AM EDT Office Visit [facility] [address] [place] [address] [phone] Lizzy Dorado MD [address] [place] [phone] [email or web address] documented as of this encounter Results * DXA Outside (No Interpretation) (06/23/2022 12:00 AM EST) Narrative Record, 01/16/2025 2:10 PM EDT This study is for PACS storage only and not for interpretation. Procedure Note Record, 01/16/2025 This study is for PACS storage only and not for interpretation. us Provider Not In System PhD IMG OUTSIDE IMAGING W /OUT INTERPRETATION Final Result documented in this encounter Visit Diagnoses Not on filedocumented in this encounter Care Teams Automation Specialist Relationship Specialty Start Date End Date Tawny Dunn MD [facility] [place] [address] PCP - General Internal Medicine 07/25/24 documented as of this encounter Additional Source Comments The information contained in this document represents components of the legal health record. It is not the complete legal health record.[facility]
--- OUTSIDE RECORDS SUMMARY | 2025-02-20 16:25 | XMS_ITS | Encounter Summary ---
Author Organization [facility] Address [address] [place] [address] Phone Care Team Providers Care Mva Still Operator Name Role Phone Lito Dunn MD Primary Care Provider [phone] Reason for Visit * Reason Comments Med Refill Encounter Details Date Type Department Care Team (Late Contact Info) Description 08/06/2023 Refill [facility] [address] [facility] [address] [place] [address] Margy Carrion MD Social History [...] Visit [facility] [address] [facility] [address] [place] [phone] Dmitry Woo MD [address] [facility] [address] [place] [address] documented as of this encounter Visit Diagnoses Not on filedocumented in this encounter Care Teams Mva Still Operator Relationship Specialty Start Date End Date Lito Dunn MD [address] [place] [address] PCP - General Internal Medicine 02/23/23 documented as of this encounter
--- OUTSIDE RECORDS SUMMARY | 2025-02-20 16:25 | XMS_ITS | Encounter Summary ---
Author Organization [facility] Address [address] [place] [address] [place] [address] Phone Care Team Providers Care Supervisor Grading Name Role Phone Tawny Dunn MD Primary Care Provider Encounter Details Date Type Department Care Team (Late st Contact Info) Description 01/16/2025 Ancillary Orders [address] [address] System, Provider Not In, PhD Partners [address] [address] Social History Tobacco Use Types Packs/Day Years [...] 11:00 AM EDT Office Visit [facility] [address] [place] [address] [phone] Lizzy Dorado MD [address] [place] [phone] [email or web address] documented as of this encounter Results * DXA Outside (No Interpretation) (05/30/2016 12:00 AM EST) Narrative SYSTEMGENERATED, DOCUMENTATION - 01/16/2025 2:22 PM EDT This study is for PACS storage only and not for interpretation. us Provider Not In System PhD IMG OUTSIDE IMAGING W /OUT INTERPRETATION Final Result documented in this encounter Visit Diagnoses Not on filedocumented in this encounter Care Teams Supervisor Grading Relationship Specialty Start Date End Date Tawny Dunn MD [address] [facility] [place] [address] PCP - General Internal Medicine 07/25/24 documented as of this encounter Additional Source Comments The information contained in this document represents components of the legal health record. It is not the complete legal health record.[facility]
--- OUTSIDE RECORDS SUMMARY | 2025-02-20 16:25 | XMS_ITS | Encounter Summary ---
Author Organization [facility] Address [address] [place] [address] [place] [address] Phone Care Team Providers Care Production Planner Name Role Phone Tawny Dunn MD Primary Care Provider Encounter Details Date Type Department Care Team (Late st Contact Info) Description 01/16/2025 Ancillary Orders [address] [address] System, Provider Not In, PhD Partners [address] [address] Social History Tobacco Use Types Packs/Day Years [...] 11:00 AM EDT Office Visit [facility] [address] [place] [address] [phone] Lizzy Dorado MD [address] [place] [phone] [email or web address] documented as of this encounter Results * DXA Outside (No Interpretation) (05/24/2014 12:00 AM EST) Narrative SYSTEMGENERATED, DOCUMENTATION - 01/16/2025 2:34 PM EDT This study is for PACS storage only and not for interpretation. us Provider Not In System PhD IMG OUTSIDE IMAGING W /OUT INTERPRETATION Final Result documented in this encounter Visit Diagnoses Not on filedocumented in this encounter Care Teams Production Planner Relationship Specialty Start Date End Date Tawny Dunn MD [address] [facility] [address] PCP - General Internal Medicine 07/25/24 documented as of this encounter Additional Source Comments The information contained in this document represents components of the legal health record. It is not the complete legal health record.[facility]
== END 2025-02-20 14:19 | disposition home or self-care (01) ==
LOC: HO.HKA 14:02
PROVIDERS: PCP Internal Medicine; Visit Provider Internal Medicine Hypertension Specialist
DX: N18.31 Chronic kidney disease, stage 3a (principal); E21.3 Hyperparathyroidism, unspecified
CPT/HCPCS: 99214

== ENCOUNTER → 2025-02-20 14:01 | Outpatient (BNVA) | payer MEDICARE, SELFPAY | PROVIDERS: PCP Internal Medicine; Visit Provider Internal Medicine Hypertension Specialist | DX: N18.31 Chronic kidney disease, stage 3a (principal); E23.1 Drug-induced hypopituitarism | CPT/HCPCS: 99212 ==

== ENCOUNTER 2025-03-22 07:55 | Outpatient (REF) | payer MEDICARE, SELFPAY ==
--- OUTSIDE RECORDS SUMMARY | 2025-03-22 08:00 | XMS_ITS | Encounter Summary ---
Author Organization [facility] Address [address] [place] [address] [place] [phone] Phone Care Team Providers Care Power Generation Engineer Name Role Phone Tawny Dunn MD Primary Care Provider Encounter Details Date Type Department Care Team (Late st Contact Info) Description 01/16/2025 Ancillary Orders [address] [address] System, Provider Not In, PhD [facility] [address] [address] Social History Tobacco Use Types Packs/Day Years [...] 11:00 AM EDT Office Visit [facility] [address] [place] [address] [phone] Lizzy Dorado MD [address] [place] [phone] [email or web address] documented as of this encounter Results * [...] on filedocumented in this encounter Care Teams Power Generation Engineer Relationship Specialty Start Date End Date Tawny Dunn MD [facility] [place] [address] PCP - General Internal Medicine 07/25/24 documented as of this encounter Additional Source Comments The information contained in this document represents components of the legal health record. It is not the complete legal health record.[facility]
--- OUTSIDE RECORDS SUMMARY | 2025-03-22 08:00 | XMS_ITS | Encounter Summary ---
Author Organization [facility] Address [address] [place] [address] [place] [address] Phone Care Team Providers Care State Attorney Name Role Phone Tawny Dunn MD Primary Care Provider Encounter Details Date Type Department Care Team (Late st Contact Info) Description 01/12/2025 Ancillary Orders [address] [address] System, Provider Not In, PhD Partners [address] [address] Social History Tobacco Use Types Packs/Day Years [...] 11:00 AM EDT Office Visit [facility] [address] [place] [address] Lizzy Dorado MD [address] [place] [phone] [email or web address] documented as of this encounter Results * [...] on filedocumented in this encounter Care Teams State Attorney Relationship Specialty Start Date End Date Tawny Dunn MD [facility] [place] [address] PCP - General Internal Medicine 07/25/24 documented as of this encounter Additional Source Comments The information contained in this document represents components of the legal health record. It is not the complete legal health record.[facility]
--- OUTSIDE RECORDS SUMMARY | 2025-03-22 08:00 | XMS_ITS | Encounter Summary ---
Author Organization [facility] Address [address] [place] [address] [place] [address] Phone Care Team Providers Care Medical Writer Name Role Phone Tawny Dunn MD Primary Care Provider Encounter Details Date Type Department Care Team (Late st Contact Info) Description 01/16/2025 Ancillary Orders [address] [address] System, Provider Not In, PhD Partners [address] [address] Social History Tobacco Use Types Packs/Day Years [...] AM EDT Office Visit [facility] [address] [place] [address] [phone] Lizzy Dorado MD [address] [place] [address] [email or web address] documented as of this [...] on filedocumented in this encounter Care Teams Medical Writer Relationship Specialty Start Date End Date Tawny Dunn MD [address] [facility] [place] [address] PCP - General Internal Medicine 07/25/24 documented as of this encounter Additional Source Comments The information contained in this document represents components of the legal health record. It is not the complete legal health record.[facility]
--- OUTSIDE RECORDS SUMMARY | 2025-03-22 08:00 | XMS_ITS | Clinical Summary ---
Author Organization [facility] Address [address] [place] [address] Phone Care Team Providers Care Stage Settings Painter Name Role Phone Tawny Dunn MD Primary [...] Department Care Team Description 02/14/2025 Orders Only [facility] Endocrinology [address] [place] [address] Lizzy Dorado MD Hyperparathyroidism (Primary Dx) 02/10/2025 7:42 AM EDT - 02/10/2025 11:59 PM EDT Hospital Encounter [facility] [address] [place] [address] Lizzy Dorado MD Discharge Disposition: Home or Self Care 01/27/2025 Orders Only [facility] [address] Lizzy Dorado MD 01/16/2025 Ancillary Orders [address] [address] System, Provider Not In, PhD 01/16/2025 Ancillary Orders [address] [place] [address] System, Provider Not In, PhD 01/16/2025 Ancillary Orders [address] [address] System, Provider Not In, PhD 01/16/2025 Ancillary Orders [address] [address] System, Provider Not In, PhD 01/16/2025 Ancillary Orders [address] [address] System, Provider Not In, PhD 01/12/2025 10:00 AM EDT Office Visit [facility] [address] [place] [address] Lizzy Dorado MD Hyperparathyroidism (Primary Dx); Age-related osteoporosis without current pathological fracture; Acquired hypothyroidism 01/12/2025 Ancillary Orders [address] [address] System, Provider Not In, PhD 01/12/2025 Orders Only [facility] [address] [place] [address] Provider, MD Karlos 01/12/2025 Telephone [facility] [address] [place] [address] Lizzy Dorado MD from Last 3 Months [...] 11:00 AM EDT Office Visit [facility] [address] [place] [address] [place] [address] Lizzy Dorado MD [address] [place] [phone] [email or web address] Health Maintenance Due Date Last Done Comments [...] EDT) SODIUM 143 133 - 146 mmol/L [facility] POTASSIUM 4.2 3.3 - 5.1 mmol/L [facility] CHLORIDE 107 96 - 108 mmol/L [facility] CO2 27 21 - 35 mmol/L [facility] BUN 23(H) 6 - 19 mg/dL [facility] CREATININE 1.10 0.5 - 1.5 mg/dL [facility] GLUCOSE 114(H) 70 - 99 mg/dL [facility] ALBUMIN 4.2 3.9 - 4.8 g/dL [facility] TOTAL PROTEIN 7.5 6.5 - 8.0 g/dL [facility] CALCIUM 8.9 8.4 - 10.3 mg/dL [facility] ALKALINE PHOSPHATASE 93 39 - 117 U/L [facility] TOTAL BILIRUBIN 0.5 0.0 - 1.2 mg/dL [facility] AST 23 0 - 37 U/L [facility] ALT 14 0 - 40 U/L [facility] GLOBULIN 3.3 1 - 4.8 g/dL [facility] EGFR 55(L) >59 mL/min/1.7 3m2 [facility] Comment:Estimated glomerular filtration rate calculated using the CKD-EPI refit equation. ANION GAP 13 10 - 20 mmol/L [facility] Blood 02/10/2025 7:50 AM EDT 02/10/2025 7:59 AM EDT us Lizzy Dorado MD LAB BLOOD ORDERABLES F inal Result Performing Organization Address City/[facility]/ZIP Co de Phone Number [address] [address] * 25-OH vitamin D (02/10/2025 7:50 AM EDT) 25 OH VIT D (TOTAL) 46 30 - 60 ng/mL [facility] Blood 02/10/2025 7:50 AM EDT 02/10/2025 7:59 AM EDT us Lizzy Dorado MD LAB BLOOD ORDERABLES F inal Result Performing Organization Address [facility]/ZIP Co de Phone Number [address] [address] * Phosphorus (02/10/2025 7:50 AM EDT) PHOSPHORUS 3.0 2.7 - 4.5 mg/dL [facility] Blood 02/10/2025 7:50 AM EDT 02/10/2025 7:59 AM EDT us Lizzy Dorado MD LAB BLOOD ORDERABLES F inal Result Performing Organization Address City/[facility]/ZIP Co de Phone Number [address] [address] * (ABNORMAL) Parathyroid hormone (PTH) (02/10/2025 7:50 AM EDT) PARATHYROID HORMONE 94(H) 15 - 65 pg/mL [facility] Blood 02/10/2025 7:50 AM EDT 02/10/2025 7:59 AM EDT Lizzy Dorado MD LAB BLOOD ORDERABLES F inal Result [facility] [address] [place] [address] * Outside Lab (01/12/2025 1:57 PM EDT) us Historical Provider LAB BLOOD ORDERABLES Nikky l Result from Last 3 Months Insurance MEDICARE REPLACEMENT Member Subscriber Plan / Payer (Ef fective 2024-Present) Name:FranciscaNoble moctezumaice Relation to Subscriber:Self Name:Shirin Samreen Payer ID:[id number] (NAIC) Type:Medicare Address: [place] [id number] [place] [address] MEDICARE REPLACEMENT MEDICARE REPLACEMENT MEDICARE REPLACEMENT Member Subscriber Plan / Payer (Ef fective 2024-Present) Name:Samreen Carpio Relation to Subscriber:Self Name:Samreen Carpio Payer ID:[id number] (NAIC) Type:Medicare Address: [place] [id number] MEDICARE REPLACEMENT [facility] MEDICARE REPLACEMENT Care Teams Stage Settings Painter Relationship Specialty Start Date End Date Tawny Dunn MD [address] [facility] [address] PCP - General Internal Medicine 07/25/24 Additional Source Comments The information contained in this document represents components of the legal health record. It is not the complete legal health record.[facility]
--- OUTSIDE RECORDS SUMMARY | 2025-03-22 08:00 | XMS_ITS | Encounter Summary ---
Author Organization [facility] Address [address] [place] [address] [place] [address] Phone Care Team Providers Care Aerosol Line Operator Name Role Phone Tawny Dunn MD Primary Care Provider Encounter Details Date Type Department Care Team (Late st Contact Info) Description 01/16/2025 Ancillary Orders [address] [address] System, Provider Not In, [facility] [address] [address] Social History Tobacco Use Types Packs/Day Years [...] AM EDT Office Visit [facility] [address] [place] [address] [phone] Lizzy Dorado MD [address] [place] [phone] [email or web address] documented as of this encounter [...] on filedocumented in this encounter Care Teams Aerosol Line Operator Relationship Specialty Start Date End Date Tawny Dunn MD [facility] [place] [address] PCP - General Internal Medicine 07/25/24 documented as of this encounter Additional Source Comments The information contained in this document represents components of the legal health record. It is not the complete legal health record.[facility]
--- OUTSIDE RECORDS SUMMARY | 2025-03-22 08:00 | XMS_ITS | Encounter Summary ---
Author Organization [facility] Address [address] [place] [address] [place] [address] Phone Care Team Providers Care Seo Engineer Name Role Phone Tawny Dunn MD Primary Care Provider Encounter Details Date Type Department Care Team (Late st Contact Info) Description 01/16/2025 Ancillary Orders [address] [address] System, Provider Not In, PhD [facility] [address] [address] Social History Tobacco Use Types Packs/Day Years [...] 11:00 AM EDT Office Visit [facility] [address] [place] [address] [phone] Lizzy Dorado MD [address] [place] [phone] [email or web address] documented as of [...] on filedocumented in this encounter Care Teams Seo Engineer Relationship Specialty Start Date End Date Tawny Dunn MD [address] [facility] [place] [address] PCP - General Internal Medicine 07/25/24 documented as of this encounter Additional Source Comments The information contained in this document represents components of the legal health record. It is not the complete legal health record.[facility]
--- OUTSIDE RECORDS SUMMARY | 2025-03-22 08:00 | XMS_ITS | Clinical Summary ---
Author Organization [facility] Address [address] [facility] [address] [place] [address] Phone Care Team Providers Care Weather Strip Installer Name Role Phone Lito Dunn MD Primary Care Provider +1- [phone] Allergies No known active allergies Medications cycloSPORINE [...] Care Team (Late st Contact Info) Description 04/15/2025 Orders Only [facility] [address] [phone] Dmitry Woo MD [facility] [phone] Chronic kidney disease, not otherwise specified 10/16/2025 1:00 PM EDT Office Visit [facility] [address] [phone] Dmitry Woo MD [address] [phone] Health Maintenance Due Date Last Done Comments [...] age to complete this topic Insurance Medicare [id number] Medicare Care Teams Weather Strip Installer Relationship Specialty Start Date End Date Lito Dunn MD [facility] [place] [address] PCP - General Internal Medicine 02/23/23
--- OUTSIDE RECORDS SUMMARY | 2025-03-22 08:00 | XMS_ITS | Encounter Summary ---
Author Organization [facility] Address [address] [place] [address] Phone Care Team Providers Care Clinical Education Assistant Name Role Phone Lito Dunn MD Primary Care Provider [phone]- [phone] Reason for Visit * Reason Comments Med Refill Encounter Details Date Type Department Care Team (Late Contact Info) Description 08/06/2023 Refill [facility] [address] [facility] [address] [place] [address] Margy Carrion MD Social History [...] Encounters Date Type Department Care Team (Late Contact Info) Description 04/15/2025 Orders Only [facility] [address] [phone] Dmitry Woo MD [address] [phone] Chronic kidney disease, not otherwise specified 10/16/2025 1:00 PM EDT Office [facility] [address] [facility] [address] [place] [phone] Dmitry Woo MD [address] [phone] documented as of this encounter Visit Diagnoses Not on filedocumented in this encounter Care Teams Clinical Education Assistant Relationship Specialty Start Date End Date Lito Dunn MD [address] [place] [address] PCP - General Internal Medicine 02/23/23 documented as of this encounter
--- OUTSIDE RECORDS SUMMARY | 2025-03-22 08:01 | XMS_ITS | Encounter Summary ---
Author Organization [facility] Address [address] [place] [address] [place] [phone] Phone Care Team Providers Care Wheelchair Driver Name Role Phone Tawny Dunn MD Primary Care Provider Encounter Details Date Type Department Care Team (Late st Contact Info) Description 01/16/2025 Ancillary Orders [address] [address] System, Provider Not In, PhD Partners [address] [address] Social History Tobacco Use Types Packs/Day Years [...] 11:00 AM EDT Office Visit [facility] [address] [place] [address] [phone] Lizzy Dorado MD [address] [place] [phone] [email or web address] documented as of this encounter Results * [...] on filedocumented in this encounter Care Teams Wheelchair Driver Relationship Specialty Start Date End Date Tawny Dunn MD [facility] [place] [address] PCP - General Internal Medicine 07/25/24 documented as of this encounter Additional Source Comments The information contained in this document represents components of the legal health record. It is not the complete legal health record.[facility]
[2025-03-22 11:20] LABS: Alanine Aminotransferase 16 U/L (0-31); Anion Gap 11 (12-20); Aspartate Amino Transferase 25 U/L (5-31); Blood Urea Nitrogen 30 mg/dL (9-16); Calcium 9.1 mg/dL (8.4-10.2); Carbon Dioxide 27 mmol/L (22-29); Chloride 111 mmol/L (96-108); Cholesterol 178 mg/dL (<200); Estimated Glomerular Filt Rate 41; HDL Cholesterol 45 mg/dL (>40); Potassium 4.5 mmol/L (3.3-5.1); Sodium 144 mmol/L (135-145); Triglycerides 160 mg/dL (<150)
[2025-03-22 11:23] LABS: Free T4 (Free Thyroxine) 0.98 ng/dL (0.71-1.85); Thyroid Stimulating Hormone 0.63 uIU/mL (0.32-4.0)
[2025-03-22 11:31] LABS: Parathyroid Hormone Intact 74.2 pg/mL (8.7-77.1)
== END 2025-03-22 07:56 | disposition home or self-care (01) ==
LOC: HO.HMGCLDS 07:55
PROVIDERS: PCP Internal Medicine; Visit Provider Internal Medicine
DX: E11.22 Type 2 diabetes mellitus with diabetic chronic kidney disease (principal); N18.31 Chronic kidney disease, stage 3a; Z78.0 Asymptomatic menopausal state; E03.9 Hypothyroidism, unspecified; Z86.39 Personal history of other endocrine, nutritional and metabolic disease
CPT/HCPCS: 36415; 80048; 80061; 83970; 84439; 84443; 84450; 84460

== ENCOUNTER 2025-04-03 10:39 | Outpatient (AMB) | payer MEDICARE, SELFPAY ==
--- NOTE | 2025-04-03 11:05 | A.OFFPC_ITS ---
Vital Signs 04/03/25 11:15 Height 5 ft 3 in Weight 167 lb BMI 29.6 BP 140/78 H Blood Pressure Location Lt brachial Position Sitting Respiration 16 Pulse 79 Pulse Source Pulse Oximeter Temp 97.9 F Temp Source Oral Pulse Oximetry (%) 99 Oxygen Delivery Method Room Air Intake Visit Reasons: 3 months follow-up lipids and thyroid Intake Note: Pt is here today for her 3mo. f/u lipids and thyriod Waterworks Chief Engineer Required: No Allergies cat Allergy (Unknown, Uncoded 04/08/25 23:56) swelling of lips crab meat Allergy (Unknown, Uncoded 04/08/25 23:56) sweling of lips Medication List - Last Reconciled 04/08/25 by Tawny Dunn MD jie [id number] 250-40-125 mg-mg-unit (Citracal-D3 Plus Magnesium) tabs PO cyclosporine 0.05% (Restasis MultiDose) 1 drp ophthalmic (eye) Q12H doxycycline hyclate 20 mg PO ONCE epinephrine 0.3 mg (0.3 mL) IM Q4H PRN levothyroxine 75 mcg PO QAM Tobacco use date assessed: 04/03/25 Fall risk assessment: No Falls in past year Last assessed Fall Risk: 04/03/25 Dental Screening Dental Screen Date: 04/03/25 Did you have a dental visit in the last 12 months?: Yes Did you have a dental problem in the last 6 months where you did not have access to dental care?: No Was dental information given to patient?: Patient has dentist HPI 3 months follow-up lipids and thyroid HPI Details The patient is a 69-year-old female with a history of hyperparathyroidism, and had for follow-up The patient has a history of hyperparathyroidism, underwent surgical removal of three parathyroid lobes, leaving one remaining lobe. Her calcium levels have remained stable, and she is currently taking calcium supplements. She has a history of vitamin D deficiency, with a last recorded level of 5 ng/mL in October. The patient reports left elbow pain and swelling, which began approximately one week ago. She describes the pain as severe last week, with some improvement after applying ice and taking Tylenol. The pain is exacerbated by movement and exercise, particularly with repetitive motions. The patient has a history of hyperlipidemia, with triglycerides previously recorded at 160 mg/dL, which have since decreased. Her total cholesterol is within normal limits, and LDL cholesterol is noted to be within normal limits.. She maintains a daily exercise routine, including treadmill, bike, and elliptical exercises. Preventative care measures include a mammogram completed in September, and she is due for a bone density screening and colon cancer screening with Cologuard next year. She has received flu and COVID vaccinations and is advised to consider the Prevnar 21 vaccine next year. [facility] Medical History Mixed dyslipidemia Osteoporosis History of hyperparathyroidism Osteopenia of lumbar spine Controlled diabetes mellitus type II without complication CKD (chronic kidney disease) Hyperparathyroidism Hypertriglyceridemia Elevated blood pressure reading Partial tear of right rotator cuff Closed fracture of neck of left femur History of herpes zoster History of posterior vitreous detachment White coat syndrome with hypertension Osteopenia Keratitis sicca, bilateral Acquired hypothyroidism Surgical History History of parathyroidectomy Hx of repair of right rotator cuff Social History Household Members: None Housing: Apartment Alcohol intake: never Patient Tobacco Use Status: Never used Tobacco e-Cigarette/Vaping Use: Never Used Second Hand Smoke Exposure: No service: No Current occupational status: retired Current occupation: [employer] Current occupational exposures/hazards: No Cognitive needs: No Hearing needs: Yes Vision needs: No Questionnaire PHQ-9 Over the last 2 weeks, how often have you been bothered by any of the following problems? 1. Little interest or pleasure in doing things: not at all 2. Feeling down, depressed, or hopeless: not at all 3. Trouble falling or staying asleep, or sleeping too much: not at all 4. Feeling tired or having little energy: not at all 5. Poor appetite or overeating: not at all 6. Feeling bad about yourself - or that you are a failure or have let yourself or your family down: not at all 7. Trouble concentrating on things, such as reading the newspaper or watching television: not at all 8. Moving or speaking so slowly that other people could have noticed. Or the opposite - being so fidgety or restless that you have been moving around a lot more than usual: not at all 9. Thoughts that you would be better off or of hurting yourself in some way: not at all Total score: 0 Depression Screening Interpretation: Negative Depression Screening Done: Yes Source: Developed by Drs. Kehinde Arthur, Nanette Ernst, Remy Andrews and colleagues, with an educational kun from [employer]. Thrive Questionnaire Date Thrive assessed: 12/20/24 I am a: Patient What is your living situation today?: I have a steady place to live Within the past 12 months, did the food you bought not last and you didn't have the money to get more?: Sometimes True Within the past 12 months, did you worry whether your food would run out before you got money to buy more?: Often true Do you have trouble paying for medicines?: No Do you have trouble getting transportation to medical appointments?: No Do you have trouble paying your heating and electricity bill?: No Do you have trouble taking care of your child, family member or friend?: No Do you have trouble with day-to-day activities such as bathing, preparing meals, shopping, managing finances, etc.?: No Are you currently unemployed and looking for a job?: No Are you interested in more education?: No Please select the resources that you would like help with: None Currently or been in a relationship where the following occur: No concerns reported THRIVE Score: 2 AUDIT C Alcohol Use Questionnaire (AUDIT-C) 1. How often do you have a drink containing alcohol?: Never 3. How often do you have six or more drinks on one occasion?: Never Total Score: 0 JENNIFER-7 AMB Questionnaire JENNIFER-7 Date JENNIFER - 7 assessed: 12/27/24 Feeling nervous, anxious, or on edge: 0 = Not at all Not being able to stop or control worryin = Not at all Worrying too much about different things: 0 = Not at all Trouble relaxin = Not at all Being so restless that it is hard to sit still: 0 = Not at all Becoming easily annoyed or irritable: 0 = Not at all Feeling afraid as if something awful might happen: 0 = Not at all Total JENNIFER-7 score (0-4 normal; 5-9 mild; 10-14 moderate; 15-21 severe): 0 Source: Developed by Drs. Kehinde Arthur, Nanette Ernst, Remy Andrews and colleagues, with an educational kun from [employer]. Review of Systems Const Denies body aches, Denies fatigue, Denies fever(s), Denies headache(s) and Denies weakness Eyes Details: Goes to [facility] and sees the [facility] for Sight Denies change in vision ENT Denies dizziness, Denies headache(s), Reports hearing loss (Has bilateral hearing aids), Denies nasal congestion, Denies nasal discharge and Denies sore throat Card Denies chest pain, Denies lightheadedness, Denies palpitations and Denies dyspnea Resp Denies chest congestion, Denies cough, Denies dyspnea and Denies wheezing GI Denies abdominal pain, Denies change in bowel habits and Denies heartburn Reports no additional complaints Musc Reports as per HPI Skin/Breast Denies lesions and Denies rash Neuro Denies dizziness, Denies headache(s), Denies Sensory deficit (Neuro) and Denies weakness Psych Reports no additional complaints Endo Denies fatigue, Denies polydipsia, Denies polyuria and Denies palpitations Santosh/Lymph Reports no additional complaints Aller/Immun Denies seasonal rhinorrhea and Denies wheezing Physical exam (Primary Care) Vital Signs: Last Vital Signs Temp 97.9 F 04/03/25 11:15 Pulse 79 04/03/25 11:15 Resp 16 04/03/25 11:15 BP 140/78 H 04/03/25 11:15 Pulse Ox 99 04/03/25 11:15 Oxygen Delivery Method Room Air 04/03/25 11:15 BMI result Body Mass Index 29.6 Tobacco/Smoking Status: Tobacco use Status Tobacco use date assessed 04/03/25 04/03/25 11:09 Patient Tobacco Use Status Never used Tobacco 04/03/25 11:09 e-Cigarette/Vaping Use Never Used 04/03/25 11:09 PHQ-9: PHQ-9 Score PHQ-9: Total score 0 04/03/25 11:09 Depression Screening Interpretation: Negative Thrive Assessment: Date of Thrive Assessment Date Thrive assessed 12/20/24 04/03/25 11:09 Currently or been in a relationship where the following occur: No concerns reported Const Other: Alert oriented x3, no acute distress noted, ambulatory with normal gait [facility] Ears: external ears normal, TM's normal bilaterally, EAC's normal, hearing grossly impaired (Wears bilateral hearing aids) and other Mouth: Normal oral and palatal mucosa present and moist mucous membranes Eyes General: appearance normal, both eyes and all related structures Neck Neck: Yes full ROM, Yes no lymphadenopathy and Yes supple Resp Auscultation: clear to auscultation bilaterally Cardio Other: S1-S2 present regular rate and rhythm GI Other: normal bowel sounds, soft, nontender, no mass palpated General: Yes no CVA tenderness Back/Spine/Pelvis Back: no CVA tenderness and No back tenderness Skin General skin exam: no rashes or lesions noted Neuro Sensory Exam: No Sensory deficit (Neuro) Extrem Other: Slight swelling and tenderness to palpation on left epicondylar area General: Yes full ROM, Yes no pedal edema and Yes normal gait Psych Appearance: grossly normal and well kempt Mental Status: mental status grossly normal Speech and movement: Normal speech and movement present Affect: normal affect Results Reviewed Results Reviewed: angel: Samreen Carpio Age/Sex: 69/F : 1955 Unit#: [id number] Attend Dr: Tawny Dunn MD Re03/22/25 Status: DEP REF Location: [facility] Disch: SPEC : [id number] VICKI: 03/22/25 STATUS: COMP REQ : [id number] RECD: 03/22/[address]: Tawny Dunn MD COMP: 03/22/25 ENTERED: 03/22/[address] [facility] [address]: ORDERED: Met Prof Fast, AST, ALT, Lipid Panel, Free T4, TSH Test Result Flag Reference Sodium 144 135-145 mmol/L Potassium 4.5 3.3-5.1 mmol/L CL 111 H 96-108 mmol/L CO2 27 22-29 mmol/L Gap 11 L 12-20 BUN 30 H 9-16 mg/dL Creat 1.30 0.5-1.4 mg/dL eGFR 41 Chronic Kidney Disease: Estimated GFR < 60 mL/min/1.73m2 Severe Kidney Disease: Estimated GFR < 15 mL/min/1.73m2 FBS 101 H 60-99 mg/dL A fasting glucose from 100-125 mg/dl is considered impaired (pre-diabetes). CA 9.1 8.4-10.2 mg/dL AST (GOT) 25 5-31 U/L ALT (GPT) 16 0-31 U/L Triglyceride 160 H <150 mg/dL Desirable Triglyceride: less than 150 mg/dL Borderline High Triglyceride 150-199 mg/dL High Triglyceride: 200-499 mg/dL Very High Triglyceride: greater than or equal to 5OO mg/dL Cholesterol 178 <200 mg/dL Desirable Cholesterol: less than 200 mg/dL Borderline High Cholesterol: 200-239 mg/dL High Cholesterol: greater than 239 mg/dL LDL Calculated 101 H <100 mg/dL Desirable LDL: less than 100 mg/dL Near Optimal/Above Optimal LDL: 110-129 mg/dL Borderline High LDL: 130-159 mg/dL High LDL: 160-189 mg/dL Very High LDL: greater than or equal to 190 mg/dL HDL 45 >40 mg/dL Desirable HDL: greater than 40 mg/dL Note: This HDL assay may give artificially low results in patients with liver disease. Free T4 0.98 0.71-1.85 ng/dL TSH 3rd Gen. 0.63 0.32-4.0 uIU/mL TSH 3rd Generation ([facility]) Coding Level of Care Code Est Pt Level 4 (90684) Complex EM visit Add On G2211 Diagnoses Acquired hypothyroidism E03.9 CKD (chronic kidney disease) N18.9 Controlled diabetes mellitus type II without complication E11.9 Osteoporosis M81.0 Pain and swelling of left elbow M25.522; M25.422 Assessment & Plan Assessment & Plan (1) Acquired hypothyroidism: Code(s): E03.9 - Hypothyroidism, unspecified Category: Medical Plan: Thyroid levels are within normal limits, continued levothyroxine 75 mcg daily (2) CKD (chronic kidney disease): Code(s): N18.9 - Chronic kidney disease, unspecified Category: Medical Plan: Followed by Nephrology, reminded again avoidance of NSAIDs (3) Controlled diabetes mellitus type II without complication: Code(s): E11.9 - Type 2 diabetes mellitus without complications Category: Medical Plan: Diabetes mellitus well controlled with diet and exercise, last hemoglobin A1c is at 6% in December 2024 (4) Osteoporosis: Code(s): M81.0 - Age-related osteoporosis without current pathological fracture Category: Medical Plan: She recently underwent subtotal parathyroidectomy, with 3 lobes, continue still calcium supplements as and due for a repeat bone density next year. Currently being followed endocrine clinic at [facility] (5) Pain and swelling of left elbow: Code(s): M25.522 - Pain in left elbow; M25.422 - Effusion, left elbow Plan: Referred to orthopedic for further evaluation and management Orders: Referrals Orthopedics Referral M25.422 - Effusion, left elbow, M25.522 - Pain in left elbow
[2025-04-03 11:15] VITALS: BP 140/78; PULSE 79; RESP 16; TEMP 36.6; O2SAT 99; BMI 29.6
--- OUTSIDE RECORDS SUMMARY | 2025-04-03 12:46 | XMS_ITS | Encounter Summary ---
Author Organization [facility] Address [address] [place] [address] [place] [phone] Phone Care Team Providers Care System Designer Name Role Phone Tawny Dunn MD Primary Care Provider Encounter Details Date Type Department Care Team (Late st Contact Info) Description 01/12/2025 Ancillary Orders [address] [address] System, Provider Not In, PhD [facility] [address] [address] Social History Tobacco Use Types Packs/Day Years [...] 11:00 AM EDT Office Visit [facility] [address] [place] [address] [phone] Lizzy Dorado MD [address] [place] [phone] [email or web address] documented as of [...] on filedocumented in this encounter Care Teams System Designer Relationship Specialty Start Date End Date Tawny Dunn MD [facility] [place] [address] PCP - General Internal Medicine 07/25/24 documented as of this encounter Additional Source Comments The information contained in this document represents components of the legal health record. It is not the complete legal health record.[facility]
--- OUTSIDE RECORDS SUMMARY | 2025-04-03 12:46 | XMS_ITS | Encounter Summary ---
Author Organization [facility] Address [address] [place] [address] [place] [address] Phone Care Team Providers Care Brakeshoe Repairer Name Role Phone Tawny Dunn MD Primary Care Provider Encounter Details Date Type Department Care Team (Late st Contact Info) Description 01/16/2025 Ancillary Orders [address] [address] System, Provider Not In, PhD [facility] [address] [address] Social History Tobacco Use Types Packs/Day Years [...] 11:00 AM EDT Office Visit [facility] [address] [place] [address] [phone] Lizzy Dorado MD [address] [place] [phone] [email or web address] documented as of this encounter Results * DXA Outside (No Interpretation) (05/24/2014 12:00 AM EST) Narrative SYSTEMGENERATED, DOCUMENTATION - 01/16/2025 2:34 PM EDT This study is for PACS storage only and not for interpretation. us Provider Not In System PhD IMG OUTSIDE IMAGING W /OUT INTERPRETATION Final Result documented in this encounter Visit Diagnoses Not on filedocumented in this encounter Care Teams Brakeshoe Repairer Relationship Specialty Start Date End Date Tawny Dunn MD [address] [facility] [place] [address] PCP - General Internal Medicine 07/25/24 documented as of this encounter Additional Source Comments The information contained in this document represents components of the legal health record. It is not the complete legal health record.[facility]
--- OUTSIDE RECORDS SUMMARY | 2025-04-03 12:46 | XMS_ITS | Encounter Summary ---
Author Organization [facility] Address [address] [place] [address] Phone Care Team Providers Care Smoke Jumper Name Role Phone Lito Dunn MD Primary Care Provider [phone] Reason for Visit * Reason Comments Med Refill Encounter Details Date Type Department Care Team (Late Contact Info) Description 08/06/2023 Refill [facility] [address] [facility] [address] [place] [address] Margy Carrion MD Social History [...] Orders Only [facility] [address] [phone] Dmitry Woo MD [address] [phone] Chronic kidney disease, not otherwise specified 10/16/2025 1:00 PM EDT Office Visit [facility] [address] [facility] [address] [place] [phone] Dmitry Woo MD [address] [phone] documented as of this encounter Visit Diagnoses Not on filedocumented in this encounter Care Teams Smoke Jumper Relationship Specialty Start Date End Date Lito Dunn MD [address] [place] [address] PCP - General Internal Medicine 02/23/23 documented as of this encounter
--- OUTSIDE RECORDS SUMMARY | 2025-04-03 12:46 | XMS_ITS | Clinical Summary ---
Author Organization [facility] Address [address] [place] [phone] Phone Care Team Providers Care Sewing Machine Adjuster Name Role Phone Tawny Dunn MD Primary [...] Department Care Team Description 02/14/2025 Orders Only [facility] Endocrinology [address] [place] [address] Lizzy Dorado MD Hyperparathyroidism (Primary Dx) 02/10/2025 7:42 AM EDT - 02/10/2025 11:59 PM EDT Hospital Encounter [facility] [address] [place] [address] Lizzy Dorado MD Discharge Disposition: Home or Self Care 01/27/2025 Orders Only [facility] [place] [address] Lizzy Dorado MD 01/16/2025 Ancillary Orders [address] [address] System, Provider Not In, PhD 01/16/2025 Ancillary Orders [address] [place] [address] System, Provider Not In, PhD 01/16/2025 Ancillary Orders [address] [address] System, Provider Not In, PhD 01/16/2025 Ancillary Orders [address] [address] System, Provider Not In, PhD 01/16/2025 Ancillary Orders [address] [address] System, Provider Not In, PhD 01/12/2025 10:00 AM EDT Office Visit [facility] [address] [place] [address] Lizzy Dorado MD Hyperparathyroidism (Primary Dx); Age-related osteoporosis without current pathological fracture; Acquired hypothyroidism 01/12/2025 Ancillary Orders [address] [address] System, Provider Not In, PhD 01/12/2025 Orders Only [facility] [address] [place] [address] Provider, MD Karlos 01/12/2025 Telephone [facility] [address] [place] [address] Lizzy Dorado MD from Last 3 Months [...] 11:00 AM EDT Office Visit [facility] [address] [place] [address] [place] [address] Lizzy Dorado MD [address] [place] [address] Health Maintenance Due Date Last Done Comments [...] (#1) 2025 02/03/2016 COVID-19 VACCINE (1 - 2024-2 6 season) 2025 COLOGUARD 07/08/2025 07/08/2022 COLORECTAL CANCER [...] EDT) SODIUM 143 133 - 146 mmol/L [facility] POTASSIUM 4.2 3.3 - 5.1 mmol/L [facility] CHLORIDE 107 96 - 108 mmol/L [facility] CO2 27 21 - 35 mmol/L [facility] BUN 23(H) 6 - 19 mg/dL [facility] CREATININE 1.10 0.5 - 1.5 mg/dL [facility] GLUCOSE 114(H) 70 - 99 mg/dL [facility] ALBUMIN 4.2 3.9 - 4.8 g/dL [facility] TOTAL PROTEIN 7.5 6.5 - 8.0 g/dL [facility] CALCIUM 8.9 8.4 - 10.3 mg/dL [facility] ALKALINE PHOSPHATASE 93 39 - 117 U/L [facility] TOTAL BILIRUBIN 0.5 0.0 - 1.2 mg/dL [facility] AST 23 0 - 37 U/L [facility] ALT 14 0 - 40 U/L [facility] GLOBULIN 3.3 1 - 4.8 g/dL [facility] EGFR 55(L) >59 mL/min/1.7 3m2 [facility] Comment:Estimated glomerular filtration rate calculated using the CKD-EPI refit equation. ANION GAP 13 10 - 20 mmol/L [facility] Blood 02/10/2025 7:50 AM EDT 02/10/2025 7:59 AM EDT us Lizzy Dorado MD LAB BLOOD ORDERABLES F inal Result Performing Organization Address City/[facility]/ZIP Co de Phone Number [address] [address] * 25-OH vitamin D (02/10/2025 7:50 AM EDT) 25 [place] VIT D (TOTAL) 46 30 - 60 ng/mL [facility] Blood 02/10/2025 7:50 AM EDT 02/10/2025 7:59 AM EDT us Lizzy Dorado MD LAB BLOOD ORDERABLES F inal Result Performing Organization Address [facility]/ZIP Co de Phone Number [address] [address] * Phosphorus (02/10/2025 7:50 AM EDT) PHOSPHORUS 3.0 2.7 - 4.5 mg/dL [facility] Blood 02/10/2025 7:50 AM EDT 02/10/2025 7:59 AM EDT us Lizzy Dorado MD LAB BLOOD ORDERABLES F inal Result Performing Organization Address City/[facility]/ZIP Co de Phone Number [address] [address] * (ABNORMAL) Parathyroid hormone (PTH) (02/10/2025 7:50 AM EDT) PARATHYROID HORMONE 94(H) 15 - 65 pg/mL [facility] Blood 02/10/2025 7:50 AM EDT 02/10/2025 7:59 AM EDT Lizzy Dorado MD LAB BLOOD ORDERABLES F inal Result [facility] [address] [place] [address] * Outside Lab (01/12/2025 1:57 PM EDT) us Historical Provider LAB BLOOD ORDERABLES Nikky l Result from Last 3 Months Insurance MEDICARE REPLACEMENT Member Subscriber Plan / Payer (Ef fective 2024-Present) Name:FranciscaNoble moctezumaice Relation to Subscriber:Self Name:Shirin Samreen Payer ID:[id number] (NAIC) Type:Medicare Address: [place] [id number] [place] [address] MEDICARE REPLACEMENT MEDICARE REPLACEMENT MEDICARE REPLACEMENT Member Subscriber Plan / Payer (Ef fective 2024-Present) Name:Samreen Carpio Relation to Subscriber:Self Name:Samreen Carpio Payer ID:[id number] (NAIC) Type:Medicare Address: [place] [id number] MEDICARE REPLACEMENT [facility] MEDICARE REPLACEMENT Care Teams Sewing Machine Adjuster Relationship Specialty Start Date End Date Tawny Dunn MD [address] [facility] [place] [address] PCP - General Internal Medicine 07/25/24 Additional Source Comments The information contained in this document represents components of the legal health record. It is not the complete legal health record.[facility]
--- OUTSIDE RECORDS SUMMARY | 2025-04-03 12:47 | XMS_ITS | Encounter Summary ---
Author Organization [facility] Address [address] [place] [address] [place] [phone] Phone Care Team Providers Care Global Risk Management Director Name Role Phone Tawny Dunn MD Primary Care Provider Encounter Details Date Type Department Care Team (Late st Contact Info) Description 01/16/2025 Ancillary Orders [address] [address] System, Provider Not In, PhD Partners [address] [address] Social History Tobacco Use Types Packs/Day Years [...] 11:00 AM EDT Office Visit [facility] [address] [place] [address] [phone] Lizzy Dorado MD [address] [place] [phone] [email or web address] documented as of this [...] on filedocumented in this encounter Care Teams Global Risk Management Director Relationship Specialty Start Date End Date Tawny Dunn MD [address] [facility] [place] [address] PCP - General Internal Medicine 07/25/24 documented as of this encounter Additional Source Comments The information contained in this document represents components of the legal health record. It is not the complete legal health record.[facility]
--- OUTSIDE RECORDS SUMMARY | 2025-04-03 12:47 | XMS_ITS | Encounter Summary ---
Author Organization [facility] Address [address] [place] [address] [place] [address] Phone Care Team Providers Care Manager Medical Device Name Role Phone Tawny Dunn MD Primary Care Provider Encounter Details Date Type Department Care Team (Late st Contact Info) Description 01/16/2025 Ancillary Orders [address] [address] System, Provider Not In, [facility] [address] [address] Social History Tobacco Use Types Packs/Day Years [...] AM EDT Office Visit [facility] [address] [place] [address] [phone] Lizzy Dorado MD [address] [place] [phone] [email or web address] documented [...] on filedocumented in this encounter Care Teams Manager Medical Device Relationship Specialty Start Date End Date Tawny Dunn MD [facility] [place] [address] PCP - General Internal Medicine 07/25/24 documented as of this encounter Additional Source Comments The information contained in this document represents components of the legal health record. It is not the complete legal health record.[facility]
--- OUTSIDE RECORDS SUMMARY | 2025-04-03 12:47 | XMS_ITS | Clinical Summary ---
Author Organization [facility] Address [address] [facility] [address] 0 [place] [address] Phone Care Team Providers Care Cotton Picking Machine Operator Name Role Phone Lito Dunn MD Primary Care Provider [phone] Allergies No known active allergies Medications cycloSPORINE [...] Orders Only [facility] [address] [phone] Dmitry Woo MD [facility] [phone] Chronic kidney disease, not otherwise specified 10/16/2025 1:00 PM EDT Office Visit [facility] [address] [phone] Dmitry Woo MD [address] [phone] Health Maintenance Due Date Last Done Comments [...] age to complete this topic Insurance Medicare [id number] Medicare Care Teams Cotton Picking Machine Operator Relationship Specialty Start Date End Date Lito Dunn MD [facility] [place] [address] PCP - General Internal Medicine 02/23/23
--- OUTSIDE RECORDS SUMMARY | 2025-04-03 12:47 | XMS_ITS | Encounter Summary ---
Author Organization [facility] Address [address] [place] [address] [place] [address] Phone Care Team Providers Care Phlebotomy Technologist Name Role Phone Tawny Dunn MD Primary Care Provider Encounter Details Date Type Department Care Team (Late st Contact Info) Description 01/16/2025 Ancillary Orders [address] [address] System, Provider Not In, [facility] [address] [address] Social History Tobacco Use Types Packs/Day Years [...] 11:00 AM EDT Office Visit [facility] [address] [place] [address] [phone] Lizzy Dorado MD [address] [place] [address] [email or web address] documented as of this encounter Results * [...] on filedocumented in this encounter Care Teams Phlebotomy Technologist Relationship Specialty Start Date End Date Tawny Dunn MD [facility] [place] [address] PCP - General Internal Medicine 07/25/24 documented as of this encounter Additional Source Comments The information contained in this document represents components of the legal health record. It is not the complete legal health record.[facility]
--- OUTSIDE RECORDS SUMMARY | 2025-04-03 12:47 | XMS_ITS | Encounter Summary ---
Author Organization [facility] Address [address] [place] [address] [place] [address] Phone Care Team Providers Care Tool Keeper Name Role Phone Tawny Dunn MD Primary Care Provider Encounter Details Date Type Department Care Team (Late st Contact Info) Description 01/16/2025 Ancillary Orders [address] [address] System, Provider Not In, [facility] [address] [address] Social History Tobacco Use Types Packs/Day Years [...] 11:00 AM EDT Office Visit [facility] [address] [place] [address] [phone] Lizzy Dorado MD [address] [place] [phone] [email or web address] documented as of this [...] on filedocumented in this encounter Care Teams Tool Keeper Relationship Specialty Start Date End Date Tawny Dunn MD [facility] [place] [address] PCP - General Internal Medicine 07/25/24 documented as of this encounter Additional Source Comments The information contained in this document represents components of the legal health record. It is not the complete legal health record.[facility]
== END 2025-04-03 11:48 | disposition home or self-care (01) ==
LOC: HO.HMCC 10:40
PROVIDERS: PCP Internal Medicine; Visit Provider Internal Medicine
DX: E03.9 Hypothyroidism, unspecified (principal); N18.9 Chronic kidney disease, unspecified; E11.9 Type 2 diabetes mellitus without complications; M81.0 Age-related osteoporosis without current pathological fracture; M25.522 Pain in left elbow; M25.422 Effusion, left elbow

== ENCOUNTER → 2025-04-03 10:39 | Outpatient (BNVA) | payer MEDICARE, SELFPAY | PROVIDERS: PCP Internal Medicine; Visit Provider Internal Medicine | DX: E11.22 Type 2 diabetes mellitus with diabetic chronic kidney disease (principal); N18.9 Chronic kidney disease, unspecified; E21.3 Hyperparathyroidism, unspecified; E78.5 Hyperlipidemia, unspecified; E03.9 Hypothyroidism, unspecified; M81.0 Age-related osteoporosis without current pathological fracture; M25.522 Pain in left elbow; M25.422 Effusion, left elbow | CPT/HCPCS: 96127; 99212 ==

== ENCOUNTER 2025-05-22 13:52 | Outpatient (REF) | payer MEDICARE, SELFPAY ==
--- NOTE | ~2025-05-22 | XR_ITS ---
EXAMINATION: XR ELBOW, LEFT CLINICAL INFORMATION: M25.522 - Pain in left elbow COMPARISON: None available. TECHNIQUE: AP, lateral, and oblique views of the left elbow. FINDINGS: No acute cortical disruption or malalignment. No lytic or blastic metallic or radiopaque foreign body. No subcutaneous emphysema. No gross joint effusion. XR/XR elbow LT min 3V IMPRESSION: No acute fracture or dislocation or gross degenerative changes. Electronically signed by: Brian Maya MD 05/22/2025 02:23 PM [facility]
--- OUTSIDE RECORDS SUMMARY | 2025-05-22 22:41 | XMS_ITS | Encounter Summary ---
Author Organization [facility] Address [address] [place] [address] [place] [address] Phone Care Team Providers Care Dinkey Brakeman Name Role Phone Tawny Dunn MD Primary Care Provider Encounter Details Date Type Department Care Team (Late st Contact Info) Description 01/12/2025 Ancillary Orders [address] [address] System, Provider Not In, PhD [facility] [address] [address] Social History Tobacco Use Types Packs/Day Years [...] 11:00 AM EDT Office Visit [facility] [address] [place] [address] [phone] Lizzy Dorado MD [address] [place] [phone] [email or web address] documented as of [...] on filedocumented in this encounter Care Teams Dinkey Brakeman Relationship Specialty Start Date End Date Tawny Dunn MD [facility] [place] [address] PCP - General Internal Medicine 07/25/24 documented as of this encounter Additional Source Comments The information contained in this document represents components of the legal health record. It is not the complete legal health record.[facility]
--- OUTSIDE RECORDS SUMMARY | 2025-05-22 22:41 | XMS_ITS | Encounter Summary ---
Author Organization [facility] Address [address] [place] [address] [place] [address] Phone Care Team Providers Care Ice Plant Operator Name Role Phone Tawny Dunn MD Primary Care Provider Encounter Details Date Type Department Care Team (Late st Contact Info) Description 01/16/2025 Ancillary Orders [address] [address] System, Provider Not In, PhD [facility] [address] [address] Social History Tobacco Use Types Packs/Day Years [...] AM EDT Office Visit [facility] [address] [place] [address] [phone] Lizzy Dorado MD [address] [place] [phone] [email or web address] documented as of this [...] on filedocumented in this encounter Care Teams Ice Plant Operator Relationship Specialty Start Date End Date Tawny Dunn MD [address] [facility] [place] [address] PCP - General Internal Medicine 07/25/24 documented as of this encounter Additional Source Comments The information contained in this document represents components of the legal health record. It is not the complete legal health record.[facility]
--- OUTSIDE RECORDS SUMMARY | 2025-05-22 22:41 | XMS_ITS | Clinical Summary ---
Author Organization [facility] Address [address] [place] [address] Phone Care Team Providers Care Wind Turbine Engineer Name Role Phone Tawny Dunn MD [...] on imaging. Provided w/ written literature from [facility]. Will work on correcting secondary hyperparathyroidism & re-visit @ future visits. Do anticipate some improvement in bone density following parathyroidectomy. CKD (chronic kidney disease) 01/06/2008 Overview (01/12/2025): I have CKD level 2-3 depending on GFR levels Hypothyroidism 01/06/2008 Assessment & Plan (01/12/2025 6:29 PM EDT): Euthryoid on recent labs. Encounters Date Type Department Care Team Description 04/28/2025 Orders Only [facility] [address] [place] [address] Lizzy Dorado MD Hyperparathyroidism (Primary Dx) from Last 3 Months Family History Medical [...] 11:00 AM EDT Office Visit [facility] [address] [place] [address] [place] [address] Lizzy Dorado MD [address] [place] [phone] Health Maintenance Due Date Last Done Comments [...] COLORECTAL CANCER SCREENING 07/08/2025 SCREENING FOR DIABETES 04/17/2028 04/17/2025 RSV VACCINE (1 - 1-dose 75+ series) [...] Procedure Name Priority Date/Time Associated Diagnosis Comments PHOSPHORUS Routine 04/17/2025 8:22 AM EST Hyperparathyroidis m PARATHYROID HORMONE (PTH) Routine 04/17/2025 8:22 AM EST Hyperparathyroidis m 25-OH VITAMIN D Routine 04/17/2025 8:22 AM EST Hyperparathyroidis m COMPREHENSIVE METABOLIC PANEL (CMP) Routine 04/17/2025 8:22 AM EST Hyperparathyroidis m from Last 3 Months Results * (ABNORMAL) Comprehensive Metabolic Panel (CMP) (04/17/2025 8:22 AM EST) Sodium 142 136 - 145 mmol/L 04/17/2025 12:00 PM [facility] Potassium 4.4 3.4 - 5.1 mmol/L 04/17/2025 12:00 PM [facility] Chloride 106 98 - 107 mmol/L 04/17/2025 12:00 PM [facility] CO2 24 20 - 31 mmol/L 04/17/2025 12:00 PM [facility] Anion Gap 12 3 - 17 mmol/L 04/17/2025 12:00 PM [facility] BUN 25(H) 6 - 23 mg/dL 04/17/2025 12:00 PM [facility] Creatinine 1.30(H) 0.50 - 1.00 mg/dL 04/17/2025 12:00 PM [facility] eGFR 45(L) >59 mL/min/1.7 3m2 04/17/2025 12:00 PM [facility] Comment:Estimated glomerular filtration rate calculated using the CKD-EPI refit equation. Glucose 101(H) 70 - 99 mg/dL 04/17/2025 12:00 PM [facility] Calcium 8.9 8.5 - 10.5 mg/dL 04/17/2025 12:00 PM [facility] AST 20 <33 U/L 04/17/2025 12:00 PM [facility] ALT 8 <34 U/L 04/17/2025 12:00 PM [facility] Alkaline Phosphatase 85 40 - 130 U/L 04/17/2025 12:00 PM [facility] Bilirubin, Total 0.4 0.0 - 1.2 mg/dL 04/17/2025 12:00 PM [facility] Total Protein 7.4 6.4 - 8.3 g/dL 04/17/2025 12:00 PM [facility] Albumin 4.1 3.5 - 5.2 g/dL 04/17/2025 12:00 PM [facility] Globulin 3.3 1.9 - 4.1 g/dL 04/17/2025 12:00 PM [facility] Blood (Blood) Venipuncture / Unknown 04/17/2025 8:22 AM EST 04/17/2025 8:28 AM EST us Lizzy Dorado MD LAB BLOOD BKR ORDERABL ES Final Result [address] [address] * (ABNORMAL) 25-OH Vitamin D (04/17/2025 8:22 AM EST) 25-OH Vitamin D, Total 54(H) 20 - 50 ng/mL 04/17/2025 12:14 PM [facility] Comment: Severe deficiency: <10 ng/mL Mild to moderate deficiency: 10-19 ng/mL Optimum levels: 20-50 ng/mL Increased risk of hypercalciuria: 51-80 ng/mL Possible toxicity: >80 ng/mL Blood (Blood) Venipuncture / Unknown 04/17/2025 8:22 AM EST 04/17/2025 8:28 AM EST us Lizzy Dorado MD LAB BLOOD BKR ORDERABL ES Final Result Performing Organization Address City/[facility]/ZIP Co de Phone Number [address] [phone] * Phosphorus (04/17/2025 8:22 AM EST) Phosphorus 3.2 2.5 - 4.5 mg/dL 04/17/2025 12:00 PM EST [facility] Blood (Blood) Venipuncture / Unknown 04/17/2025 8:22 AM EST 04/17/2025 8:28 AM EST us Lizzy Dorado MD LAB BLOOD BKR ORDERABL ES Final Result Performing Organization Address [facility] Co de Phone Number [address] [address] * (ABNORMAL) Parathyroid Hormone (PTH) (04/17/2025 8:22 AM EST) Parathyroid Hormone (PTH) 75(H) 15 - 65 pg/mL 04/17/2025 12:14 PM EST [facility] Blood (Blood) Venipuncture / Unknown 04/17/2025 8:22 AM EST 04/17/2025 8:28 AM EST us Lizzy Dorado MD LAB BLOOD BKR ORDERABL ES Final Result Performing Organization Address City/[facility]/ZIP Co de Phone Number [address] [phone] from Last 3 Months Insurance [facility] MEDICARE REPLACEMENT MEDICARE REPLACEMENT MEDICARE REPLACEMENT MEDICARE REPLACEMENT [facility] MEDICARE [place]AC[place] [place] [address] MEDICARE REPLACEMENT Care Teams Wind Turbine Engineer Relationship Specialty Start Date End Date Tawny Dunn MD [address] [facility] [place] [address] PCP - General Internal Medicine 07/25/24 Additional Source Comments The information contained in this document represents components of the legal health record. It is not the complete legal health record.[facility]
--- OUTSIDE RECORDS SUMMARY | 2025-05-22 22:41 | XMS_ITS | Encounter Summary ---
Author Organization [facility] Address [address] [place] [address] [place] [address] Phone Care Team Providers Care In Flight Technician Name Role Phone Tawny Dunn MD Primary Care Provider Encounter Details Date Type Department Care Team (Late st Contact Info) Description 01/16/2025 Ancillary Orders [address] [address] System, Provider Not In, PhD Partners [address] [address] Social History Tobacco Use Types Packs/Day Years [...] 11:00 AM EDT Office Visit [facility] [address] [place] [address] [phone] Lizzy Dorado MD [address] [place] [phone] [email or web address] documented as of this encounter Results * DXA Outside (No Interpretation) (05/24/2014 12:00 AM EST) Narrative SYSTEMGENERATED, DOCUMENTATION - 01/16/2025 2:34 PM EDT This study is for PACS storage only and not for interpretation. us Provider Not In System PhD IMG OUTSIDE IMAGING W /OUT INTERPRETATION Final Result documented in this encounter Visit Diagnoses Not on filedocumented in this encounter Care Teams In Flight Technician Relationship Specialty Start Date End Date Tawny Dunn MD [address] [place] [address] PCP - General Internal Medicine 07/25/24 documented as of this encounter Additional Source Comments The information contained in this document represents components of the legal health record. It is not the complete legal health record.[facility]
--- OUTSIDE RECORDS SUMMARY | 2025-05-22 22:41 | XMS_ITS | Encounter Summary ---
Author Organization [facility] Address [address] [place] [address] [place] [address] Phone Care Team Providers Care Sand Technician Name Role Phone Tawny Dunn MD Primary Care Provider Encounter Details Date Type Department Care Team (Late st Contact Info) Description 01/16/2025 Ancillary Orders [address] [address] System, Provider Not In, PhD Partners [address] [address] Social History Tobacco Use Types Packs/Day Years [...] 11:00 AM EDT Office Visit [facility] [address] [place] [address] [phone] Lizzy Dorado MD [address] [place] [phone] [email or web address] documented as of this encounter Results * [...] on filedocumented in this encounter Care Teams Sand Technician Relationship Specialty Start Date End Date Tawny Dunn MD [facility] [place] [address] PCP - General Internal Medicine 07/25/24 documented as of this encounter Additional Source Comments The information contained in this document represents components of the legal health record. It is not the complete legal health record.[facility]
--- OUTSIDE RECORDS SUMMARY | 2025-05-22 22:41 | XMS_ITS | Encounter Summary ---
Author Organization [facility] Address [address] [place] [address] [place] [phone] Phone Care Team Providers Care Director Appointment Name Role Phone Tawny Dunn MD Primary Care Provider Encounter Details Date Type Department Care Team (Late st Contact Info) Description 01/16/2025 Ancillary Orders [address] [address] System, Provider Not In, PhD [facility] [address] [address] Social History Tobacco Use Types Packs/Day Years [...] AM EDT Office Visit [facility] [address] [place] [address] [phone] Lizzy Dorado MD [address] [place] [phone] [email or web address] documented as of this encounter Results * [...] on filedocumented in this encounter Care Teams Director Appointment Relationship Specialty Start Date End Date Tawny Dunn MD [facility] [place] [address] PCP - General Internal Medicine 07/25/24 documented as of this encounter Additional Source Comments The information contained in this document represents components of the legal health record. It is not the complete legal health record.[facility]
--- OUTSIDE RECORDS SUMMARY | 2025-05-22 22:41 | XMS_ITS | Encounter Summary ---
Author Organization [facility] Address [address] [place] [address] [place] [phone] Phone Care Team Providers Care Drug Abuse Technician Name Role Phone Tawny Dunn MD Primary Care Provider Encounter Details Date Type Department Care Team (Late st Contact Info) Description 01/16/2025 Ancillary Orders [address] [address] System, Provider Not In, PhD Partners [address] [address] Social History Tobacco Use Types Packs/Day Years [...] 11:00 AM EDT Office Visit [facility] [address] [place] [address] [phone] Lizzy Dorado MD [address] [place] [phone] [email or web address] documented as of this encounter Results * [...] on filedocumented in this encounter Care Teams Drug Abuse Technician Relationship Specialty Start Date End Date Tawny Dunn MD [facility] [place] [address] PCP - General Internal Medicine 07/25/24 documented as of this encounter Additional Source Comments The information contained in this document represents components of the legal health record. It is not the complete legal health record.[facility]
== END 2025-05-22 13:53 | disposition home or self-care (01) ==
LOC: HO.HOSX 13:52
DX: M70.22 Olecranon bursitis, left elbow (principal); M25.522 Pain in left elbow; M70.12 Bursitis, left hand
CPT/HCPCS: 73080

== ENCOUNTER 2025-05-22 14:06 | Outpatient (AMB) | payer MEDICARE, SELFPAY ==
--- NOTE | 2025-05-22 14:18 | A.OFFVIS_ITS ---
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 Patient states pain began around 03/28/25, originally as red spots with swelling. Patient complains today of a mass proximal to the left elbow. She explains it has grown in size. She explains she is no longer having pain. She denies associated numbness, tingling. She denies any known injuries or surgeries to her left upper extimity. 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 Patient states pain began around 03/28/25, originally as red spots with swelling. Patient complains today of a mass over the olecranon process of the left elbow. She explains it has shrunk significantly in size since appointment was booked. She explains she is no longer having pain. She denies associated numbness, tingling. She denies any known injuries or surgeries to her left upper extimity. [facility] Medical History Mixed dyslipidemia Osteoporosis History of hyperparathyroidism Osteopenia of lumbar spine Controlled diabetes mellitus type II without complication CKD (chronic kidney disease) Hyperparathyroidism Hypertriglyceridemia Elevated blood pressure reading Partial tear of right rotator cuff Closed fracture of neck of left femur History of herpes zoster History of posterior vitreous detachment White coat syndrome with hypertension Osteopenia Keratitis sicca, bilateral Acquired hypothyroidism Surgical History History of parathyroidectomy Hx of repair of right rotator cuff Social History (Updated 05/22/25 @ 14:23 by CORAZON Rodriguez) Household Members: None Housing: Apartment Alcohol intake: never Patient Tobacco Use Status: Never used Tobacco e-Cigarette/Vaping Use: Never Used Second Hand Smoke Exposure: No service: No Current occupational status: retired Current occupation: [employer], rt handed Current occupational exposures/hazards: No Cognitive needs: No Hearing needs: Yes Vision needs: No Review of Systems Const All systems reviewed & are unremarkable except as noted in HPI and below Physical Exam Extrem Other: Patient's left elbow normal to inspection No erythema, ecchymosis, edema noted No lacerations, abrasions, open areas No evidence of infection Patient reports no tenderness to palpation of the olecranon process, medial or lateral epicondyles, radial head, or elsewhere on the left elbow Range of motion of the left elbow full and intact Of note, there is a small, approximately 0.25 cm in diameter bead like protrusion on the patient's olecranon process, which I feel likely represents a small amount of remaining swelling of the olecranon process of the left elbow Distal sensation intact Capillary refill brisk Assessment & Plan Assessment & Plan (1) Olecranon bursitis of left elbow: Code(s): M70.22 - Olecranon bursitis, left elbow Category: Medical Plan 1. Olecranon bursitis of left elbow Symptoms have all but resolved at this point Patient is educated about this condition Patient is educated about the typical recovery course At this time, patient is informed that there is no acute intervention indicated for olecranon bursitis, especially for olecranon bursitis that has improved greatly with conservative management Patient is provided with Gustavo bandage and case she begins to notice recurrence of symptoms, and the gentle compression is the mainstay of treatment for this condition Patient is educated she should go to the hospital if she experiences severe redness, pain, and cellulitis, as this could represent septic olecranon bursitis and may require IV antibiotics Patient understands this and is amenable to this plan Follow-up as needed Orders: Orders XR elbow LT min 3V Today M25.522 - Pain in left elbow Coding Level of Care Code New Pt Level 3 (94867) Diagnoses Olecranon bursitis of left elbow M70.22
== END 2025-05-22 14:33 | disposition home or self-care (01) ==
LOC: HO.HOS 14:07
PROVIDERS: PCP Internal Medicine
DX: M70.22 Olecranon bursitis, left elbow (principal)
CPT/HCPCS: 99203

== ENCOUNTER → 2025-05-22 14:11 | Outpatient (BNV) | payer MEDICARE, SELFPAY | PROVIDERS: Visit Provider Radiology Diagnostic Radiology | DX: M25.522 Pain in left elbow (principal) | CPT/HCPCS: 73080 ==